=== PATIENT | female | born 1980 | race Caucasian/White ===

== ENCOUNTER 2022-10-05 19:55 | Outpatient (REF) | payer OTHER, SELFPAY ==
[2022-10-10 07:07] LABS: Age Gdln ACOG Testing Note (.); HPV Aptima Negative (Negative); IGP, Aptima HPV, rfx 16/18,45 Note (.)
== END 2022-10-05 19:56 | disposition home or self-care (01) ==
LOC: LAB 19:55
PROVIDERS: Visit Provider Physician Assistant
DX: Z01.419 Encounter for gynecological examination (general) (routine) without abnormal findings (principal)
CPT/HCPCS: 87624; G0145

== ENCOUNTER 2023-03-30 13:49 | Outpatient (OUT) | payer OTHER, SELFPAY ==
--- NOTE | 2023-03-30 13:54 | MM_ITS ---
Patient Name: MISSY GURROLA MR#: [id number] : 1980 Exam Date: 03/30/2023 Ordering Doctor: DR Arnoldo Bernal . RADIOLOGY REPORT PROCEDURE: MM TOMOSYNTHESIS SCREENING BI COMPARISON: MG MAMM SCREEN 3D JAIDEN CAD, 03/11/2021. MG MAMM SCREEN 3D JAIDEN CAD, 03/25/2022. INDICATIONS: screening Calculator Name NCI Breast Cancer Risk Assessment Tool 5 Year Breast Cancer Risk 0.90% Lifetime Breast Cancer Risk 11.80% Personal Breast Cancer No Personal Ovarian Cancer No Treatments None Family Cancers Grandmother-maternal with stomach cancer at age 87. LOCATION: [facility] BREAST COMPOSITION: Scattered areas fibroglandular density. FINDINGS: DIAGNOSTIC CATEGORY 1--NEGATIVE. NO CHANGE FROM COMPARISON ASSESSMENT. Scattered benign-appearing calcifications are present. Scattered benign-appearing lymph nodes are present. RIGHT BREAST: No significant suspicious finding. LEFT BREAST: No significant suspicious finding. RECOMMENDATIONS: ROUTINE MAMMOGRAM AND CLINICAL EVALUATION IN 12 MONTHS. PLEASE NOTE: A NORMAL MAMMOGRAM DOES NOT EXCLUDE THE POSSIBILITY OF BREAST CANCER. A CLINICALLY SUSPICIOUS PALPABLE LUMP SHOULD BE BIOPSIED. Dictated by: Jf Carrion MD on 03/30/2023 at 14:54 Approved by: Jf Carrion MD on 03/30/2023 at 14:56
== END 2023-03-30 13:50 | disposition home or self-care (01) ==
LOC: MAMMO 13:50
PROVIDERS: PCP Family Medicine; Visit Provider Obstetrics & Gynecology
DX: Z12.31 Encounter for screening mammogram for malignant neoplasm of breast (principal); Z80.0 Family history of malignant neoplasm of digestive organs
CPT/HCPCS: 77063; 77067

== ENCOUNTER 2023-10-10 21:16 | Outpatient (REF) | payer OTHER, SELFPAY ==
--- OUTSIDE RECORDS SUMMARY | 2023-10-10 21:28 | XMS_ITS | CCD ---
Author Organization [facility] Inform ion Partnership [facility] Care Team Providers Care School Lunch Monitor Name Role Phone VENUS, DR AUNDREA Moore Admitting Unavailable ZIEBER, DR JESSEE Juarez Consulting Unavailable NAKITA, DR SALAZAR Primary Care Unavailable HEMMER, DR AUNDREA Moore Attending Unavailable HEMMER, DR AUNDREA Moore Consulting Unavailable RAMIRO, DR DIAS Attending Unavailable RAMIRO, DR DIAS Consulting Unavailable RAMIRO, DR DIAS Admitting Unavailable NAKITA, DR SALAZAR Primary Care Unavailable RAMIRO, DR DIAS Admitting Unavailable RAMIRO, DR DIAS Attending Unavailable RAMIRO, DR DIAS Consulting Unavailable NAKITA, DR SALAZAR Primary Care Unavailable ZIEBER, DR JESSEE Juarez Consulting Unavailable PETITTI CORWIN A Attending Unavailable YEISONNIKOLAY Attending Unavailable VENUS, AUNDREA Moore Attending Unavailable Problems Active Problems Problem Classification Problem Date Documented Da te Episodic/Chronic Other screening for suspected conditions (not mental disorders or infectious disease) (8 sources) Encounter for screening mammogram for malignant neoplasm of breast; Translations: [Encounter for screening for malignant neoplasm of cervix] Onset: 09-21-2021 Episodic Residual codes; unclassified (1 source) Family history of malignant neoplasm of digestive organs; Translations: [FAM HX MALIG NEOPLASM DIGESTIV ORGN] Onset: 03-29-2022 Episodic Spondylosis; intervertebral disc disorders; other back problems (4 sources) Radiculopathy, lumbar region; Translations: [RADICULOPATHY LUMBAR REGION] Onset: 04-01-2022 Episodic Past or Other Problems Problem Classification Problem Date Documented Date Episodic/Chronic Immunizations and screening for infectious disease (1 source) Encounter for screening for human papillomavirus (HPV); Translations: [ENC SCREENING HUMAN PAPILLOMAVIRUS] Onset: 09-22-2021 Episodic Results Test Name Value Interpretation Reference Range Facil ity XR LSPINE MIN 4 VIEWSon 03-08 XR LSPINE MIN 4 VIEWS EXAMINATION: XR LSPINE MIN 4 VIEWS HISTORY: Lumbar radiculopathy , chronic COMPARISON: No relevant comparison available. FINDINGS: BONES: No significant spondylosis, scoliosis, fracture, or visible bony lesion. DISC SPACES: No significant disc height narrowing, subluxation, or endplate abnormality. PARASPINOUS: Negative. No paraspinous abnormality is seen. OTHER: Negative. IMPRESSION: 1. No appreciable acute abnormality or significant degenerative changes. Consider MRI of lumbar spine if symptoms persist. Electronically authenticated by: JESSEE ZAYAS Date: 2022-04-02 07:56 Normal [facility] MAMM SCREEN 3D JAIDEN CADon 03-25-2022 MG MAMM SCREEN 3D JAIDEN CAD Patient: MISSY GURROLA Exam Date: 03/25/2022 : 1980 Gender:F Ordering : DR ARUN RUBIO . Admission #: [id number] Family : Order #: [id number] CLICK HERE TO VIEW EXAM RADIOLOGY REPORT PROCEDURE: MAMMOGRAM SCREENING 3D BILATERAL CAD COMPARISON: MG MAMM SCREEN JAIDEN W CAD, 01/25/2020. MG MAMM SCREEN 3D JAIDEN CAD, 03/11/2021. INDICATIONS: Screening mammography Calculator Name NCI Breast Cancer Risk Assessment Tool 5 Year Breast Cancer Risk 0.80% Lifetime Breast Cancer Risk 11.90% Personal Breast Cancer No Personal Ovarian Cancer No Treatments None Family Cancers Grandmother-maternal with stomach cancer at age 87. LOCATION: [facility] BREAST COMPOSITION: Scattered areas fibroglandular density. FINDINGS: DIAGNOSTIC CATEGORY 1--NEGATIVE. RIGHT BREAST: No significant suspicious finding. No significant change has occurred. LEFT BREAST: No significant suspicious finding. No significant change has occurred. RECOMMENDATIONS: ROUTINE MAMMOGRAM AND CLINICAL EVALUATION IN 12 MONTHS. PLEASE NOTE: A NORMAL MAMMOGRAM DOES NOT EXCLUDE THE POSSIBILITY OF BREAST CANCER. A CLINICALLY SUSPICIOUS PALPABLE LUMP SHOULD BE BIOPSIED. Dictated by: Jessee Zayas M.D. on 03/29/2022 at 09:19 Approved by: Jessee Zayas M.D. on 03/29/2022 at 10:00 Normal [facility] PAP ACOG PANEL 2: 30 to 65on 09-25-2021 . . Normal [facility] Comment on above: Result Comment: Perf ormed at: WB Performed By: #### [id number] #### [facility] [address] [place] [address] Dr. Crystal Cunningham Age Gdln ACOG Testing 30-65 Normal [facility] Comment on above: Performed By: #### [id number] #### [facility] [address] [place] [address] Dr. Crystal Cunningham DIAGNOSIS: Comment Normal [facility] Comment on above: Result Comment: NEGA TIVE FOR INTRAEPITHELIAL LESION OR MALIGNANCY. Performed at: WB Performed By: #### [id number] #### [facility] [address] [place] [address] Dr. Crystal Cunningham HPV Aptima Negative Normal Negative [facility] Comment on above: Result Comment: This nucleic acid amplification test detects fourteen high-risk HPV types (16,18,31,33,35,39,45,51,52,56,58,59,66,68) without differentiation. Performed at: =G Performed By: #### [id number] #### [facility] [address] [place] [address] Dr. Crystal Cunningham Methodology: Comment Normal [facility] Comment on above: Result Comment: This liquid based ThinPrep(R) pap test was screened with the use of an image guided system. Performed at: WB Performed By: #### [id number] #### [facility] [address] [place] [address] Dr. Crystal Cunningham Note: Comment Normal [facility] Comment on above: Result Comment: The Pap smear is a screening test designed to aid in the detection of premalignant and malignant conditions of the uterine cervix. It is not a diagnostic procedure and should not be used as the sole means of detecting cervical cancer. Both false-positive and false-negative reports do occur. . Performed at: WB Performed By: #### [id number] #### [facility] [address] [place] [address] Dr. Crystal Cunningham Performed by: Comment Normal [facility] Comment on above: Result Comment: Alberto Mulligan, Technology Engineer (ASCP) Performed at: WB Performed By: #### [id number] #### [facility] [address] [place] [id number] Crystal Cunningham Specimen adequacy: Comment Normal [facility] Comment on above: Result Comment: Sati sfactory for evaluation. Endocervical and/or squamous metaplastic cells (endocervical component) are present. Performed at: WB Performed By: #### [id number] #### [facility] [address] [place] [id number] Crystal Cunningham Coding Summary.on 04-14-2021 Coding Summary. CD:[id number] Gh 0bWw+PGhlYWQ+WM6KANEsM 89dxMQxwU5NW7eFZW0SUNU ZYJXSMA9LAM7puGP4SYtpS 2VybiAv MfwpyGXbTJ85ZNy4SOQ3jJ cbEDcziW4ikGVcU3u0NlHn IL36qQ41TPjhTVTgOjS2Sf ZpbjsgbWFy G9blOyWvjIYuEzp+PHRhYm xlIHdpZHRoPScxMDAlJyBz tPzaLA0mVf3zGNLlVCMfgI xhcHNlOiBj t0xqHUIpXVqoBQ3seWhpQ4 YruAR6LERrj5m3Tb94bQG+ NAOyMLM0aTusNMbcy754Up Dwv8juWCV4 hMTgZZsrGVG5I29xx0P9ZF MqHBMyZEF9aTR7vE5tlScb pxhnQ4QelLXgNlX2EIY1cG JbxD4kbGkm lccnpF9bMux+F63GHI1BJF OTGK1ZXyg8E5OvIfeqsGY+ TI44VLYvYR57aTVgxLXsd7 grtXz8LlCf PHMcMPP4wSazPWtgu0WmOX VmK12hzDZqj8Y2LACgtOib rNFwQbOmwCX3zM7bGAsjzc kxh2ddorxr Dcgwz9xjqw25nB78Q97qXL gvTUHjLST1MELxGIXpbImj or9kkK1fYf7+BQbhr4vcf3 bluRu8RlPw NRNaigLmtOolRQE2u1ZfXa 12R0QblNdwe7CtXoj3cd06 nZGba9J5pVW8EVcvTCCfpH 7xZEreYlE0 CAWkBsGxuU00yAFhNTslZn 8hwYluwXlhZD9kIAIifswh TZDpzH5gTEAdfPEgjOsnNM 4wNTBpbjtm p385FyCrHQR5ZMTebJVvM3 XxvS2pJvEeWYNqZMUsY9Mw hERqTPgsH311LZbjKhN0FS PkifEfZ1Rz WGXrbMbtTcA7c8K7Vn3Ex8 KkakcwYAB4FSxnTRRhOcZ2 JuUqOoL2R6JyYyk5EYMdmN qfBT7oS1Ev YWAsqxzidqbsxYH3QAAgXY AuuL99iRLpMYitYp0gh0F2 v064UWSlWWCwkH70Vz2rhI ogMTBwdCBU aI1yykwct9bmqzegAdQvOG RdIEm4RDj2FXTooPefTgBb QUZ2KjO7WLF9eYDvkS7ebZ cnpchdoT0w Oyc+P12niV6iTWB7APX2wh gjFNBscrClDS20DD37C7Gc PjwvdGFibGU+PGRpdiBzdH ztBG2fFeRk j8cxb1QySXffW6RsJDAoSM zjQzc3LVShQHO0mBI2iJ2q NQIcXIcqt9M6kRS3J1Nmih Lsnq9oo7cl FFDgINaeP80ijYOjf0W2JO OxqUM2ZEJnkTjmLjYleD40 Oyc+JNQyaPmkb7VhXtjas7 dqj8uzbMc0 QkQkXICwrmFfrLczDIA5o3 WqRj93C49dGSsjJJWhNWYz ZBQjHCSmjOxhtk0fdG5tZq 8+PGNvbCB3 gGB7eS6eYGLrAkH4ZXztB9 67SxWvaGEmZkahk1vnv6bm aDi4KiGvXPNnhhKcjFmnUA A0c1HkIz02 C22yGDstSSGnWSFbYWUyFQ MwkJyrra8uzN6wZx5+PC9j d2myjt62jN68nVZ+PHRkIH S2eIzpMZma FIGywV0oPFbmFwR5KRAdFn SofD15lSYhKFnxSy2zoGmn fQbgUH5nOSVqohoqm244Kl Udn0cuQRSt rDTyMXsdOVZ9W75gq4Q9HO SvFZGrSQU2xMI5uG2utAfa bjogbGVmdDsgdmVydGljYW sqARczH526 IHRvcDsnPlBhdGllbnQgTm EzQHb1E4NyLyw6RGFwyIzz CW8qzPVlRRcpNm6wzXxkmQ gkPO8zJWAx xqggq079MiJuo1ljGOBlvY JzYAgwSLX9D12gx9Z5QNAh CPNyGJG1jRE1iH9ydIjbxy ogbGVmdDsg woXvlOiqRAidFQlzL871SU RvcDsnPkJpcnRoIERhdGU6 ES87BG31nOMkm2I6cFU7L3 BhZGRpbmct pwjrgCT8XBMpIVJnqW66Wh 5euMvsTq8iEJTvSXW0BADd tTWtV0XgpY8ySiBoVKFzUM FbO1PdsUGo VUhaB076RLnqZbN5LKOlba FvF2RrOKLhdKxzOmG9j1P4 Ji7RB7D6VY92WH93mGJgp1 O1bUV9I2Ef EZKsrnnuyjzlqYI1HVYaVK WtbJ20Me0jdXxbOe2gXTIg OJB8NOLjrADiS1BrgV3oRt AjMDAwMDAw H6WjnQXeAFxsE858LZvbDo P0YDTibuBdA9UnIOTynGlk NnW1m7W0Uo7WARu0DR07NO 03jJZwx5Q9 zCA9T0VpMXPvmmtixmeekX A4DFBqJHRtuD31Pf6avAoe Tk5gZVAuKQX6WFBctRCrT5 JtjL6aDgQf KULtHFMcR3RamIZlRGdkF3 59AAvtJcT2RZYmiqHfG3Ka MGKckYbmFpY3t6K3Gh5TYE ZtUW23QYY2 lVC1YS95AT65T8NdIzwmkG FibGU+PHRhYmxlIHdpZHRo EIfaDNLaVhAxwUxoGC9wKy 9yZGVyLWNv ePowpGNtDaEyf0moSIJySU pxWT6zpGvaP0NvlJD2KAVr y9f5Fv55X95cB1ApmSU+PG HsiIN4vDC0 sW0eBjRkHnM2MBalS689Mi VarCAdZwpqc9onu7owqTs8 JzH3XPVhzgYeyZkrRMC1p5 CuVe43K82x IHdpZHRoPSIxNSUiIHZhbG yiuq3osF1pYo6+PGNvbCB3 yJJ3fG1bTcFgUnS2EXfyZ4 49InRvcCIv Oyrro4xzm9ujhUu2HxTsRI StaaZtxChfPMK3e9QrGu32 O4JocFpek2VcEja8hb15yC Yul1L5mNP8 L6TrWBRhidpkeUXjiSwtEY 7gMCBuhzzaEEKojZ6uPHSo J2t2SzEyMpZ6KHbaS0Aarn H0YVNwjIKw LLlyZKD1Y58sw0Z1SCMcUO JxXHA6qOE4fO9tcSdfpjzf bGVmdDsgdmVydGljYWwtYW buO977KHSm hPwwUPVqsD4vGRGjhBLcxS jlAL2gYOMjrsetLhLPA4rO ZampUZ7JXnYKKHv3U7QuWj x9OAIhrMgi VN0jzSIoUYpbQc2hqUgatK jjFL7kZBNbmbrcRKBhxW3l OQCvbGKnsDgzAO2bUSLhkm mqt755EwYp KQC9QFFngGKuR5TpgF9iQn LoKGXoSHPzN5NopKNuOEfb J967KZiaVqF1UVQuelAaC4 FsLWFsaWdu PdJ9p8J7Yq5fVM3uEQ4bJO adQT90SM27aWZtg0U8xPR4 C9EsEUDwhsjrxcwmcNS7BR RqBMXqtU38 sBPjNNnwDu7qe9Q0y554NE LrMUCqaT52Gr4nsKyaNLSi tDFAkN7pttbiv4lnluwfNa AwMDAwMDt0 RXl5SZZazKwlRdIzANJ3Ua L1FJW6cPSlcS1huYdogyro dU0oHho+HBShILPfdrK1J0 DsGxb8IODb eGrePH0muVHbBFaaSf2keC qerYvrXC8tWBGoaccgFGGj eR9yTHAebAChxUqoJL7jLT Ydkpkcd966 BmDfHHQ6JNAgvNMuV1QjgH 4iBjZbPQKsAUZiF4LcaNXg OFpwB401MQheScM5NXHlto VsC9PxLYAy rLhhTvS2l4P7Zt3ALI4oiG T0A2VmSgk5VZXhqAxwEX8d dKEyLJrfMt1wzTpngBhvDL 4wNTBpbjtw QWArqC9sDZHawRKnmZegCD 7bQBMdrmtnb174RkFwKZR2 SFGjvFLuW8LjsR9oVjZtSO ZqEAIqN5Gm jPEpUYnuH167LKqaMkY3OA HlroPuK6FtRDTorSrpJiG2 z0T1Vi6ZkMEbVHEaCB16LG 60XL66O0Bq PjwvdGFibGU+PHRhYmxlIH dpZHRoPScxMDAlJyBzdHls DN9pLq6gYPBaUFGrfAhaoX AgOxYfb0yz DBReNJufIT2eoCyiY2HwuC I9ZAKyp4v8Wy83L26bT8Zs dXA+CCMovEX5pKK5aN7xDh LfXuJ3QFqi O116MbGjzDLhByvgs5dut0 pswUt9BaBvUFYfpxPmbMpr PYA5y5GpPn29D27bBReuGA RoPSIyMCUi LNTwzWeznv2smD0fZo1+PG PbmJO2cZG5xQ2xPjEqPrW0 JSwjC939CjFywMTwGbjoF9 6sA7FpoAE+ SRAlMdl4GSFobRmqRF1mcB ArPZmwNy7oMTG7EuPiIgQo CGqmJ3EoFFRwbpclrcqtaM I7QYXbRAIw cA11Pc9qpThgQo0sTKNbED C7VFPoiJRxH6XafM9qTpXa INWtAMDnS9LelHYbMXddP2 92USknQvV1 PLMggsUsV7YkKZJmmPzfCi C9e4X3Nl9CtPngbQRgEW9a MiVaQDd6R4SnLju9RWZouS huBW0gyFZy LAfjJi4erQtevKwjCU7rOC Vrmfxdv683RoObu6fwXQPm vCYqMXxsXTG0B48ln4J1ZL MwMDAwMDA7 zNH2pD1ooJjdiyabiIDwxO iwhqOjtSagFCgqITocG044 CMIeaClmPcYYRly9W8WjWg u2UNOljRbk DF6ahUHwLStfUp8keJrcjL zqYK3eBGBhnxpcb550EjCo z4tfUIOtgYGnTPbhPLO1W2 6xs0E8GJGs VGNqDSV8iRS7gC5ncCwfcd ogbGVmdDsgdmVydGljYWwt MTeeR316TJAqoBjbPe3OZy y6M2QiZos4 MWYpoAiqVR2nnRPsDVkgSr 8zgAwilIwdVA2lQQOqpxgt q675FbNnj4bbYGSkvPDfDN mmFIN8V35z v5J0PGFcFNHyWBU9bUJ5eB 1hbGlnbjogbGVmdDsgdmVy cCrxKAjaYRqxZ403JLFjpE snPlBheWVy OjwvdGQ+TU48eh69C5DsCk ijVbw7SIFgQEQ2sSA6vM4q UGXqWVfqh4C7qUM1H5Zzxf Vsle0gh1qx YXBz (more content not included)... Normal [facility] MRI Ankle w/o Contrast Right on 04-14-2021 MRI Ankle w/o Contrast Right Exam Date/Time: 04/13/2021 08:22 EST Reason for Exam: CHRONIC PAIN AND INFLAMMATION Report IMPRESSION: TINY FOCAL SPLIT TEAR OF PERONEUS BREVIS TENDON ALONG THE INFERIOR MARGIN OF THE LATERAL MALLEOLUS. 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 EXAM: MRI Ankle w/o Contrast Right HISTORY: Chronic pain and inflammation. TECHNIQUE: Multisequence multiplanar MRI of the ankle was performed without contrast COMPARISON: None available FINDINGS: Achilles tendon is intact. The visualized plantar fascia is intact and is without thickening or nodularity. The tibialis posterior, flexor hallucis longus, and flexor digitorum longus tendons are intact. No space-occupying lesion within the tarsal tunnel. Tiny focal split tear of peroneus brevis along the inferior margin of the lateral malleolus. Peroneus brevis longus tendon is intact. Extensor tendons are intact. The anterior and posterior tibiofibular ligaments, posterior talofibular ligament, and calcaneofibular ligament are intact. Full-thickness tear of the anterior talofibular ligament is likely chronic as there is no adjacent soft tissue edema Superficial and deep fibers of the deltoid ligament are intact. Spring ligament is intact. Sinus tarsi fat is preserved. Mild degenerative changes of the midfoot. No ankle joint effusion. No evidence of fracture or stress reaction of the visualized bones. FINAL REPORT Dictated: 04/14/2021 11:16 am Elias Castillo DO Signed (Electronic Signature): 04/14/2021 11:16 am Signed by: Elias Castillo DO Transcribed by: EDWIN Technologist: KARLY Technical Comments None Normal [facility] Consent for Treatmenton Consent for Treatment [id number] 0CD:127 Normal [facility] RAD - MRI Screening Formon 0 04-13-2021 RAD - MRI Screening Form [id number]. 00CD:127 Normal [facility] Physician Orderon 04-06-2021 Physician Order [id number] 0CD:127 Normal [facility] Comprehensive Metabolic Pane ana 12-24-2020 Albumin [Mass/Vol] 4.3 g/dL Normal 3.5-4.6 [facility] Comment on above: Performed By: #### C MP #### [facility] [address] [place] [address] ALP [Catalytic activity/Vol] 61 U/L Normal 40-130 [facility] Comment on above: Performed By: #### C MP #### [facility] [address] [place] [address] ALT [Catalytic activity/Vol] 21 U/L Normal 0-33 [facility] Comment on above: Performed By: #### C MP #### [facility] [address] [place] [address] Anion gap [Moles/Vol] 14 mmol/L Normal 9-15 [facility] Comment on above: Performed By: #### C MP #### [facility] [address] [place] [address] AST [Catalytic activity/Vol] 20 U/L Normal 0-35 [facility] Comment on above: Performed By: #### C MP #### [facility] [address] [place] [address] Bilirubin [Mass/Vol] 0.3 mg/dL Normal 0.2-0.7 [facility] Comment on above: Performed By: #### C MP #### [facility] [address] [place] [address] Calcium [Mass/Vol] 9.3 mg/dL Normal 8.5-9.9 [facility] Comment on above: Performed By: #### C MP #### [facility] [address] [place] [address] Chloride [Moles/Vol] 102 mmol/L Normal 95-107 [facility] Comment on above: Performed By: #### C MP #### [facility] [address] [place] [address] CO2 [Moles/Vol] 23 mmol/L Normal 20-31 [facility] Comment on above: Performed By: #### C MP #### [facility] [address] [place] [address] Creatinine [Mass/Vol] 0.82 mg/dL Normal 0.50-0.90 [facility] Comment on above: Performed By: #### C MP #### [facility] [address] [place] [address] GFR >60.0 Normal >60 [facility] Comment on above: Result Comment: >60 mL/min/1.73m2 EGFR, calc. for ages 18 and older using the MDRD formula (not corrected for weight), is valid for stable renal function. Performed By: #### C MP #### [facility] [address] [place] [address] GFR/1.73 sq M.predicted among blacks MDRD (S/P/Bld) [Vol rate/Area] mL/min/{1.73_m2} Normal >60 [facility] Comment on above: Result Comment: >60 mL/min/1.73m2 EGFR, calc. for ages 18 and older using the MDRD formula (not corrected for weight), is valid for stable renal function. Performed By: #### C MP #### [facility] [address] [place] [address] Globulin (S) [Mass/Vol] 2.4 g/dL Normal 2.3-3.5 [facility] Comment on above: Performed By: #### C MP #### [facility] [address] [place] [address] Glucose [Mass/Vol] 102 mg/dL Critically high 70-[address] [facility] [place] Comment on above: Performed By: #### C MP #### [facility] [address] [place] [address] Potassium [Moles/Vol] 5.0 mmol/L Critically high 3.4-4.9 [facility] Comment on above: Performed By: #### C MP #### [facility] [address] [place] [address] Protein [Mass/Vol] 6.7 g/dL Normal 6.3-8.0 [facility] Comment on above: Performed By: #### C MP #### [facility] [address] [place] [address] Sodium [Moles/Vol] 139 mmol/L Normal 135-144 [facility] Comment on above: Performed By: #### C MP #### [facility] [address] [place] [address] Urea nitrogen [Mass/Vol] 15 mg/dL Normal 6-20 [facility] Comment on above: Performed By: #### C MP #### [facility] [address] [place] [address] Lipid Panelon 12-24-2020 Cholesterol [Mass/Vol] 173 mg/dL Normal 0-199 [facility] Comment on above: Result Comment: ATP III Cholesterol classification is Desirable. Performed By: #### L IPID #### [facility] [address] [place] [address] Cholesterol in HDL [Mass/Vol] 52 mg/dL Normal 40-59 [facility] Comment on above: Result Comment: ATP III HDL Cholesterol Classification is Desirable. Expected Values: Males: >55 = No Risk 35-55 = Moderate Risk <35 = High Risk Females: >65 = No Risk 45-65 = Moderate Risk <45 = High Risk NCEP Guidelines: Third Report July 2000 >59 = negative risk factor for CHD <40 = major risk factor for CHD Performed By: #### L IPID #### [facility] [address] [place] [address] Cholesterol in LDL [Mass/Vol] 101 mg/dL Normal 0-129 [facility] Comment on above: Result Comment: ATP III LDL Classification is Near Optimal. Performed By: #### L IPID #### [facility] [address] [place] [address] Triglyceride [Mass/Vol] 102 mg/dL Normal 0-150 [facility] Comment on above: Result Comment: ATP III Triglycerides Classification is Normal. Performed By: #### L IPID #### [facility] [address] [place] [address] Encounters Encounter Date Encounter Type Care Provider Facility Start: 05-04-2023 End: 05-04-2023 ambulatory AUNDREA DONOVAN Not Available Start: 04-06-2023 End: 04-06-2023 ambulatory NIKOLAY LATHAM Not Available Start: 03-17-2023 End: 03-17-2023 ambulatory CORWIN HALL Not Available Start: 04-01-2022 End: 04-02-[address] AUNDREA DONOVAN Facility[facility] Start: 03-25-2022 End: 03-26-[address] ARUN RUBIO Facility:[facility] Start: 09-21-2021 End: 09-21-[address] ARUN RBUIO Facility:[facility] Payers Date Payer Category Payer Unknown [id number] 2.16.84 [id number] 1980 Unknown [id number] 2.16.84 [id number] 1980 Unknown [id number] 2.16.84 [id number] 1980 Unknown [id number] 2.16.84 [id number] 1979 Unknown [id number] 2.16.84 [id number] 1979 Unknown [id number] 2.16.84 [id number] 1959 Unknown [id number] Summary Purpose Family History No Family History Records FoundNo Family History Records FoundNo Family History Records FoundNo Family History Records Found Advance Directives No Advanced Directives Records FoundNo Advanced Directives Records FoundNo Advanced Directives Records FoundNo Advanced Directives Records Found Additional Source Comments INFORMATION SOURCE (unrecogn ized section and content) DATE CREATED AUTHOR 12/25/2020 [facility] DATE CREATED AUTHOR AUTHOR'S ORGANIZ ATION 04/15/2021 [facility] DATE CREATED AUTHOR AUTHOR'S ORGANIZ ATION 04/05/2022 [facility] DATE CREATED AUTHOR AUTHOR'S ORGANIZ ATION 05/07/2023 [facility] FOR RECORDS PERTAINING TO PATIENTS WHO ARE OR HAVE BEEN ENROLLED IN A CHEMICAL DEPENDENCY/SUBSTANCEABUSE PROGRAM, SOME INFORMATION MAY BE OMITTED. This clinical summary was aggregated from multiple sources. Caution should be exercised in using it in the provision of clinical care. This summary normalizes information from multiple sources, and as a consequence, information in this document may materially change the coding, format and clinical context of patient data. In addition, data may be omitted in some cases. CLINICAL DECISIONS SHOULD BE BASED ON THE PRIMARY CLINICAL RECORDS. [facility] [employer] provides no warranty or guarantee of the accuracy or completeness of information in this document.
== END 2023-10-10 21:17 | disposition home or self-care (01) ==
LOC: LAB 21:16
PROVIDERS: PCP Family Medicine; Visit Provider Physician Assistant
DX: Z01.419 Encounter for gynecological examination (general) (routine) without abnormal findings (principal)
CPT/HCPCS: 87624; 88175

== ENCOUNTER 2024-04-05 15:27 | Outpatient (OUT) | payer OTHER, SELFPAY ==
--- NOTE | 2024-04-05 15:30 | MM_ITS ---
Patient Name: MISSY GURROLA MR#: [id number] : 1980 Exam Date: 04/05/2024 Ordering Doctor: DR Arnoldo Bernal . RADIOLOGY REPORT PROCEDURE: MM TOMOSYNTHESIS SCREENING BI COMPARISON: MM TOMOSYNTHESIS SCREENING BI, 03/30/2023. MG MAMM SCREEN 3D JAIDEN CAD, 03/25/2022. MG MAMM SCREEN 3D JAIDEN CAD, 03/11/2021. MG MAMM SCREEN JAIDEN W CAD, 01/25/2020. INDICATIONS: Screening Calculator Name NCI Breast Cancer Risk Assessment Tool 5 Year Breast Cancer Risk 0.90% Lifetime Breast Cancer Risk 11.70% Personal Breast Cancer No Personal Ovarian Cancer No Treatments None Family Cancers Grandmother-maternal with stomach cancer at age 87. LOCATION: [facility] BREAST COMPOSITION: There are scattered areas of fibroglandular density. FINDINGS: DIAGNOSTIC CATEGORY 1--NEGATIVE. RIGHT BREAST: No significant suspicious finding. No significant change has occurred. LEFT BREAST: No significant suspicious finding. No significant change has occurred. RECOMMENDATIONS: ROUTINE MAMMOGRAM AND CLINICAL EVALUATION IN 12 MONTHS. PLEASE NOTE: A NORMAL MAMMOGRAM DOES NOT EXCLUDE THE POSSIBILITY OF BREAST CANCER. A CLINICALLY SUSPICIOUS PALPABLE LUMP SHOULD BE BIOPSIED. Dictated by: Jessee Zayas M.D. on 04/05/2024 at 16:26 Approved by: Jessee Zayas M.D. on 04/05/2024 at 16:28
--- OUTSIDE RECORDS SUMMARY | 2024-04-05 15:32 | XMS_ITS | CCD ---
Author Organization [facility] Care Team Providers Care Customer Sales Representative Name Role Phone VENUS, DR BILLIE Moore Admitting Unavailable ZIEBCHARLES, DR JESSEE Juarez Consulting Unavailable NAKITA, DR SALAZAR Primary Care Unavailable HEMMER, DR BILLIE Moore Attending Unavailable HEMMER, DR BILLIE Moore Consulting Unavailable RAMIRO, DR DIAS Attending Unavailable RAMIRO, DR DIAS Consulting Unavailable RAMIRO, DR DIAS Admitting Unavailable NAKITA, DR SALAZAR Primary Care Unavailable RAMIRO, DR DIAS Admitting Unavailable RAMIRO, DR DIAS Attending Unavailable RAMIRO, DR DIAS Consulting Unavailable NAKITA, DR SALAZAR Primary Care Unavailable ZIEBER, DR JESSEE Juarez Consulting Unavailable Antwon Sheffield MD Primary Care Provider [phone] Mily Hall Unavailable NIKOLAY LATHAM Attending Unavailable BILLIE DONOVAN Attending Unavailable MILY SANTANA Attending Unavailable BILLIE DONOVAN Attending Unavailable BILLIE DONOVAN Attending Unavailable BILLIE DONOVAN Referring Unavailable JOSSELINE HALL Attending Unavailable Medications Current Medications Medication Drug Class(es) Dates Sig (Normalized) Sig (Original) ethinyl estradiol 0.035 mg / norethindrone 0.4 mg oral tablet (9 sources) Estrogen Start: 10-10-2023 norethindrone-ethiny l estradiol (Balziva) 0.4-35 MG-MCG tablet Indications: Well woman exam with routine gynecological exam , Uses control One tab daily 28 tablet 11 10/10/2023 Active triamcinolone acetonide 1 mg/ml topical cream (9 sources) Corticosteroid Start: 03-17-2023 triamcinolone (Kenalog) 0.1 % cream Indications: Lichen simplex chronicus Apply to affected areas, up to twice a day when flared, do not use one the face, groin, or underarms, 30 day supply 30 g 11 03/17/2023 Active Completed/Discontinued Medications Medication Drug Class(es) Dates Sig (Normalized) Sig (Original) meloxicam 15 mg oral tablet (2 sources) Nonsteroidal Anti-inflammatory Drug Start: 07-25-2023 End: 02-06-2024 take 1 tablet by mouth once daily at mealtime meloxicam (Mobic) 15 MG tablet Indications: Lumbar radiculopathy TAKE 1 TABLET BY MOUTH EVERY DAY TAKE WITH FOOD 30 tablet 2 07/25/2023 02/06/2024 Discontinued (Therapy completed) Problems Active Problems Problem Classification Problem Date Documented Date Episodic/Chronic Diabetes mellitus without complication (2 sources) Impaired fasting glycemia; Translations: [Impaired fasting glucose] 02-13-2024 Episodic Immunizations and screening for infectious disease (3 sources) Encounter for screening for human papillomavirus (HPV); Translations: [Vaccination needed] Onset: 09-22-2021 02-06-2024 Episodic Other and unspecified benign neoplasm (2 sources) Melanocytic nevus of trunk; Translations: [Melanocytic nevi of trunk] 03-19-2024 Episodic Other and unspecified benign neoplasm (2 sources) Skin lesion; Translations: [Hemangioma of skin and subcutaneous tissue] 03-19-2024 Episodic Other connective tissue disease (2 sources) Other symptoms and signs involving the musculoskeletal system; Translations: [Other musculoskeletal symptoms referable to limbs] 02-06-2024 Episodic Other inflammatory condition of skin (7 sources) Lichen simplex chronicus; Translations: [Lichen simplex chronicus] Onset: 02-13-2024 02-13-2024 Episodic Other nervous system disorders (2 sources) 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 Other nutritional; endocrine; and metabolic disorders (7 sources) Obesity caused by energy imbalance; Translations: [Class 1 obesity due to excess calories without serious comorbidity with body mass index (BMI) of 32.0 to 32.9 in adult] Onset: 02-13-2024 02-13-2024 Chronic Other screening for suspected conditions (not mental disorders or infectious disease) (8 sources) Encounter for screening mammogram for malignant neoplasm of breast; Translations: [Encounter for screening for malignant neoplasm of cervix] Onset: 09-21-2021 Episodic Other skin disorders (2 sources) Lentiginosis; Translations: [Other melanin hyperpigmentation] 03-19-2024 Episodic Other skin disorders (2 sources) Seborrheic keratosis; Translations: [Other seborrheic keratosis] 03-19-2024 Episodic Residual codes; unclassified (1 source) Family history of malignant neoplasm of digestive organs; Translations: [FAM HX MALIG NEOPLASM DIGESTIV ORGN] Onset: 03-29-2022 Episodic Past or Other Problems Problem Classification Problem Date Documented Da te Episodic/Chronic Other connective tissue disease (11 sources) Iliotibial band friction syndrome of left knee; Translations: [Iliotibial band syndrome, left leg] Onset: 03-31-2023 03-31-2023 Episodic Other connective tissue disease (11 sources) Trochanteric bursitis of left hip; Translations: [Trochanteric bursitis, left hip] Onset: 03-31-2023 03-31-2023 Episodic Other endocrine disorders (9 sources) Hypoglycemia; Translations: [Hypoglycemia, unspecified] Onset: 03-31-2023 Resolved: 02-06-2024 03-31-2023 Chronic Spondylosis; intervertebral disc disorders; other back problems (20 sources) Radiculopathy, lumbar region; Translations: [Disorder of left sciatic nerve] Onset: 04-01-2022 Episodic Unclassified (2 sources) Left leg weakness 02-06-2024 Results Test Name Value Interpretation Reference Range Facility MR LUMBAR SPINE WO CONTRASTo n 02-20-2024 MR LUMBAR SPINE WO CONTRAST EXAMINATION/TECHNIQUE : MR LUMBAR SPINE WO CONTRAST HISTORY: Back pain. COMPARISON: None. RESULT: Counting reference: Lumbosacral junction. For the purposes of this report, L5-S1 is considered the last well-formed disc space. 5 lumbar type vertebral bodies. Alignment: Alignment essentially anatomic. Bone marrow signal: No evidence for acute or chronic fracture. No destructive osseous lesions. Conus: The conus is within normal limits of signal intensity and morphology. Paraspinal soft tissues: Subcutaneous edema posteriorly, otherwise unremarkable. Lower thoracic spine: Visualized lower thoracic canal and foramina without significant narrowing. T12-L1: No significant canal or foraminal narrowing. L1-L2: No significant canal or foraminal narrowing. L2-L3: No significant canal or foraminal narrowing. L3-L4: Disc desiccation. Disc bulge. No significant canal or foraminal narrowing. L4-L5: Disc bulge. Facet degenerative changes. No significant canal or foraminal narrowing. L5-S1: Disc bulge. Facet degenerative changes. No significant canal or foraminal narrowing. Sacrum and iliac wings: The visualized sacrum and iliac wings are unremarkable. IMPRESSION: Degenerative lumbar spine without high-grade canal or foraminal narrowing. ELECTRONICALLY SIGNED BY: Enio Rush MD Normal Not Available CBC (INCLUDES DIFF/PLT)on Basophils (Bld) [#/Vol] 0.028 10*3/uL Normal 0-200 [facility] Comment on above: Performed By: #### 1 0231, 7600, 6399 #### [facility] [place] [address] Screedman/Laborer: Herminio Faust MD Basophils/100 WBC (Bld) 0.3 % Normal [facility] Comment on above: Performed By: #### 1 023, 7599, 6399 #### [facility] [place] [address] Screedman/Laborer: Herminio Faust MD Eosinophils (Bld) [#/Vol] 0.074 10*3/uL Normal 15-500 [facility] Comment on above: Performed By: #### 1 0231, 7600, 6399 #### [facility] [place] [address] Screedman/Laborer: Herminio Faust MD Eosinophils/100 WBC (Bld) 0.8 % Normal [facility] Comment on above: Performed By: #### 1 0231, 7599, 6399 #### [facility] [place] [address] Screedman/Laborer: Herminio Faust MD Erythrocyte distribution width (RBC) [Ratio] 12.0 % Normal 11.0-15.0 [facility] Comment on above: Performed By: #### 1 0231, 7600, 6399 #### [facility] [place] [address] Screedman/Laborer: Herminio Faust MD Hematocrit (Bld) [Volume fraction] 40.7 % Normal 35.0-45.0 [facility] Comment on above: Performed By: #### 1 230, 7599, 6399 #### [facility] of [place] [address] Screedman/Laborer: Herminio Faust MD Hemoglobin (Bld) [Mass/Vol] 13.3 g/dL Normal 11.7-15.5 [facility] Comment on above: Performed By: #### 1 230, 7599, 6399 #### [facility] of [place] [address] Screedman/Laborer: Herminoi Faust MD Lymphocytes (Bld) [#/Vol] 1.794 10*3/uL Normal 850-3900 [facility] Comment on above: Performed By: #### 1 230, 7599, 6399 #### [facility] of [place] [address] Screedman/Laborer: Herminio Faust MD Lymphocytes/100 WBC (Bld) 19.5 % Normal [facility] Comment on above: Performed By: #### 1 230, 7599, 6399 #### [facility] of [place] [address] Screedman/Laborer: Herminio Faust MD MCH (RBC) [Entitic mass] 30.9 pg Normal 27.0-33.0 [facility] Comment on above: Performed By: #### 1 230, 7599, 6399 #### [facility] of [place] [address] Screedman/Laborer: Herminio Faust MD MCHC (RBC) [Mass/Vol] 32.7 g/dL Normal 32.0-36.0 [facility] Comment on above: Result Comment: For adults, a slight decrease in the calculated MCHC value (in the range of 30 to 32 g/dL) is most likely not clinically significant; however, it should be interpreted with caution in correlation with other red cell parameters and the patient's clinical condition. Performed By: #### 1 023, 7599, 6399 #### [facility] of [address], [address] [place] [address] Screedman/Laborer: Herminio Faust MD MCV (RBC) [Entitic vol] 94.7 fL Normal 80.0-100.0 [facility] Comment on above: Performed By: #### 1 0231, 0, 6399 #### [facility] of [address], [address] [place] [address] Screedman/Laborer: Herminio Faust MD Monocytes (Bld) [#/Vol] 0.267 10*3/uL Normal 200-950 [facility] Comment on above: Performed By: #### 1 0231, 7599, 6399 #### [facility] of [address], [address] [place] [address] Screedman/Laborer: Herminio Faust MD Monocytes/100 WBC (Bld) 2.9 % Normal [facility] Comment on above: Performed By: #### 1 023, 7599, 6399 #### [facility] of [address], [address] [place] [address] Screedman/Laborer: Herminio Faust MD Neutrophils (Bld) [#/Vol] 7.038 10*3/uL Normal 9438-0649 [facility] Comment on above: Performed By: #### 1 0231, 7599, 6399 #### [facility] of [address], [address] [place] [address] Screedman/Laborer: Herminio Faust MD Neutrophils/100 WBC (Bld) 76.5 % Normal [facility] Comment on above: Performed By: #### 1 0231, 7599, 6399 #### [facility] of [place] [address] Screedman/Laborer: Herminio Faust MD Platelet mean volume (Bld) [Entitic vol] 10.0 fL Normal 7.5-12.5 [facility] Comment on above: Performed By: #### 1 0231, 0, 6399 #### [facility] of [address], [address] [place] [address] Screedman/Laborer: Herminio Faust MD Platelets (Bld) [#/Vol] 327 10*3/uL Normal 140-400 [facility] Comment on above: Performed By: #### 1 0231, 7600, 6399 #### [facility] of [address], [address] [place] [address] Screedman/Laborer: Herminio Faust MD RBC (Bld) [#/Vol] 4.30 10*6/uL Normal 3.80-5.10 [facility] Comment on above: Performed By: #### 1 0231, 7600, 6399 #### [facility] of [place] [address] Screedman/Laborer: Herminio Faust MD WBC (Bld) [#/Vol] 9.2 10*3/uL Normal 3.8-10.8 [facility] Comment on above: Performed By: #### 1 0231, 7600, 6399 #### [facility] of [address], [address] [place] [address] Screedman/Laborer: Herminio Faust MD [employer] [facility] 02-14-2024 Albumin [Mass/Vol] 4.3 g/dL Normal 3.6-5.1 [facility] Comment on above: Performed By: #### 1 0231, 7600, 6399 #### [facility] of [place] [address] Screedman/Laborer: Herminio Faust MD Albumin/Globulin [Mass ratio] 1.5 {ratio} Normal 1.0-2.5 [facility] Comment on above: Performed By: #### 1 0231, 7600, 6399 #### [facility] of [place] [address] Screedman/Laborer: Herminio Faust MD ALP [Catalytic activity/Vol] 51 U/L Normal 31-125 [facility] Comment on above: Performed By: #### 1 0231, 7600, 6399 #### [facility] of [address] [place] [address] Screedman/Laborer: Herminio Faust MD ALT [Catalytic activity/Vol] 18 U/L Normal 6-29 [facility] Comment on above: Performed By: #### 1 0231, 7599, 6399 #### [facility] of [address], [address] [place] [address] Screedman/Laborer: Herminio Faust MD AST [Catalytic activity/Vol] 19 U/L Normal 10-30 [facility] Comment on above: Performed By: #### 1 0231, 7599, 6399 #### [facility] of [address], [address] [place] [address] Screedman/Laborer: Herminio Faust MD Bilirubin [Mass/Vol] 0.4 mg/dL Normal 0.2-1.2 [facility] Comment on above: Performed By: #### 1 023, 7599, 6399 #### [facility] of [address], [address] [place] [address] Screedman/Laborer: Herminio Faust MD BUN/CREATININE RATIO SEE NOTE: Normal 6-22 [facility] Comment on above: Result Comment: Not Reported: BUN and Creatinine are within reference range. Performed By: #### 1 023, 7599, 6399 #### [facility] of [address], [address] [place] [address] Screedman/Laborer: Herminio Faust MD Calcium [Mass/Vol] 9.4 mg/dL Normal 8.6-10.2 [facility] Comment on above: Performed By: #### 1 023, 7599, 6399 #### [facility] of [address], [address] [place] [address] Screedman/Laborer: Herminio Faust MD Chloride [Moles/Vol] 101 mmol/L Normal 98-110 [facility] Comment on above: Performed By: #### 1 023, 7599, 6399 #### [facility] of [address], [address] [place] [address] Screedman/Laborer: Herminio Faust MD CO2 [Moles/Vol] 27 mmol/L Normal 20-32 [facility] Comment on above: Performed By: #### 1 023, 7599, 6399 #### [facility] of [place] [address] Screedman/Laborer: Herminio Faust MD Creatinine [Mass/Vol] 0.89 mg/dL Normal 0.50-0.99 [facility] Comment on above: Performed By: #### 1 023, 7599, 6399 #### [facility] of [place] [address] Screedman/Laborer: Herminio Faust MD GFR/1.73 sq M.predicted among non-blacks MDRD (S/P/Bld) [Vol rate/Area] 82 mL/min/{1.73_m2} Normal > OR = 60 [facility] Comment on above: Performed By: #### 1 023, 7599, 6399 #### [facility] of [address], [address] [place] [address] Screedman/Laborer: Herminio Faust MD Globulin (S) [Mass/Vol] 2.8 g/dL Normal 1.9-3.7 [facility] Comment on above: Performed By: #### 1 023, 7599, 6399 #### [facility] of [place] [address] Screedman/Laborer: Herminio Faust MD Glucose [Mass/Vol] 95 mg/dL Normal 65-99 [facility] Comment on above: Result Comment: Fasting reference interval Performed By: #### 1 023, 7599, 6399 #### [facility] of [place] [address] Screedman/Laborer: Herminio Faust MD Potassium [Moles/Vol] 4.2 mmol/L Normal 3.5-5.3 [facility] Comment on above: Performed By: #### 1 023, 7599, 6399 #### [facility] of [place] [address] Screedman/Laborer: Herminio Faust MD Protein [Mass/Vol] 7.1 g/dL Normal 6.1-8.1 [facility] Comment on above: Performed By: #### 1 0231, 7600, 6399 #### [facility] [place] [address] Screedman/Laborer: Herminio Faust MD Sodium [Moles/Vol] 137 mmol/L Normal 135-146 [facility] Comment on above: Performed By: #### 1 0231, 7600, 6399 #### [facility] [address], [address] [place] [address] Screedman/Laborer: Herminio Faust MD Urea nitrogen [Mass/Vol] 15 mg/dL Normal 7-25 [facility] Comment on above: Performed By: #### 1 0231, 7600, 6399 #### [facility] [place] [address] Screedman/Laborer: Herminio Faust MD LIPID PANEL, [place] [address] Cholesterol [Mass/Vol] 175 mg/dL Normal <200 [facility] Comment on above: Order Comment: FASTI NG:YES FASTING: YES Performed By: #### 1 0231, 0, 6399 #### [facility] [place] [address] Screedman/Laborer: Herminio Faust MD Cholesterol in HDL [Mass/Vol] 47 mg/dL Low > OR = 50 [facility] Comment on above: Order Comment: FASTI NG:YES FASTING: YES Performed By: #### 1 0231, 7600, 6399 #### [facility] [place] [address] Screedman/Laborer: Herminio Faust MD Cholesterol in LDL [Mass/Vol] 104 mg/dL High [facility] Comment on above: Order Comment: FASTI NG:YES FASTING: YES Result Comment: Refe rence range: <100 Desirable range <100 mg/dL for primary prevention; <70 mg/dL for patients with CHD or diabetic patients with > or = 2 CHD risk factors. LDL-C is now calculated using the Reinier-Araujo calculation, which is a validated novel method providing better accuracy than the Friedewald equation in the estimation of LDL-C. Reinier SS et al. DEEPAK. 2013;310(19): 1661-3517 (http://education.[employer]/faq/WSN039) Performed By: #### 1 0231, 7600, 6399 #### [facility] [address], [address] [place] [address] Screedman/Laborer: Herminio Faust MD Cholesterol.total/ Cholesterol in HDL [Mass ratio] 3.7 {ratio} Normal <5.0 [facility] Comment on above: Order Comment: FASTI NG:YES FASTING: YES Performed By: #### 1 0231, 7600, 6399 #### [facility] [address], [address] [place] [address] Screedman/Laborer: Herminio Faust MD NON HDL CHOLESTEROL 128 mg/dL (calc) Normal <130 [facility] Comment on above: Order Comment: FASTI NG:YES FASTING: YES Result Comment: For patients with diabetes plus 1 major ASCVD risk factor, treating to a non-HDL-C goal of <100 mg/dL (LDL-C of <70 mg/dL) is considered a therapeutic option. Performed By: #### 1 0231, 7600, 6399 #### [facility] [place] [address] Screedman/Laborer: Herminio Faust MD Triglyceride [Mass/Vol] 141 mg/dL Normal <150 [facility] Comment on above: Order Comment: FASTI NG:YES FASTING: YES Performed By: #### 1 0231, 7600, 6399 #### [facility] [address], [address] [place] [address] Screedman/Laborer: Herminio Faust MD XR LSPINE MIN 4 VIEWSon 03-08 XR [...] JESSEE ZAYAS Date: 2022-04-02 07:56 Normal [facility] MG MAMM SCREEN 3D JAIDEN CADon 03-25-2022 MG MAMM SCREEN 3D JAIDEN CAD Patient: LARRY GURROLA Exam Date: 03/25/2022 : 1980 Gender:F Ordering : DR ARUN RUBIO . Admission #: [id number] Family : Order #: [id number] CLICK HERE TO VIEW EXAM RADIOLOGY REPORT [...] stomach cancer at age 86. LOCATION: [facility] BREAST COMPOSITION: Scattered areas fibroglandular density. FINDINGS: [...] Zayas M.D. on 03/29/2022 at 10:00 Normal [facility] PAP ACOG PANEL 2: 30 to 65on 09-25-2021 . . Normal [facility] Comment on above: Result Comment: Perf ormed at: WB Performed By: #### 4 [id number] #### [facility] [address] [place] [address] [address] Crystal Cunningham Age Gdln ACOG Testing 30-65 Normal [facility] Comment on above: Performed By: #### 4 [id number] #### [facility] [address] [place] [address] [address] Crystal Cunningham DIAGNOSIS: Comment Normal [facility] Comment on above: Result Comment: NEGA TIVE FOR INTRAEPITHELIAL LESION OR MALIGNANCY. Performed at: WB Performed By: #### 4 [id number] #### [facility] [address] [place] [address] [address] Crystal Cunningham HPV Aptima Negative Normal Negative [facility] Comment on above: Result Comment: This nucleic acid amplification test detects fourteen high-risk HPV types (16,18,31,33,35,39,45,51,52,56,58,59,66,68) without differentiation. Performed at: =G Performed By: #### 4 [id number] #### [facility] [address] [place] [address] Dr. Crystal Cunningham Methodology: Comment Normal [facility] Comment on above: Result Comment: This liquid based ThinPrep(R) pap test was screened with the use of an image guided system. Performed at: WB Performed By: #### 4 [id number] #### [facility] [address] [place] [address] Dr. Crystal Cunningham Note: Comment Normal [facility] Comment on above: Result Comment: The Pap smear is a screening test designed to aid in the detection of premalignant and malignant conditions of the uterine cervix. It is not a diagnostic procedure and should not be used as the sole means of detecting cervical cancer. Both false-positive and false-negative reports do occur. . Performed at: WB Performed By: #### 4 [id number] #### [facility] [address] [place] [address] Dr. Crystal Cunningham Performed by: Comment Normal [facility] Comment on above: Result Comment: Alberto Mulligan, Turbine Mechanic (ASCP) Performed at: WB Performed By: #### 4 [id number] #### [facility] [address] [place] [address] Dr. Crystal Cunningham Specimen adequacy: Comment Normal [facility] Comment on above: Result Comment: Sati sfactory for evaluation. Endocervical and/or squamous metaplastic cells (endocervical component) are present. Performed at: WB Performed By: #### 4 [id number] #### [facility] [address] [place] [address] Dr. Crystal Cunningham Coding Summary.on 04-14-2021 Coding Summary. CD:[id number] G h0bWw+PGhlYWQ+UG1PPDS cH41woOXdkK9TH5dMJL9Y SRKZXCNVAL2QVH4lcPU3G WnvN7ScrsAf WkkvzEHaPO22EDa6EUH6u AmiRShwaC3liMLnB6s3Qi RxMP70wL30HCwkGMKaOhJ 3LjZpbjsgbWFy L9fnXjDutRPjFal+PHRhY mxlIHdpZHRoPScxMDAlJy LuuBkjQI3eUp3wFDXzGUU vbGxhcHNlOiBj h7maVUIkABrbVZ5qhQmfD 2TrsHK0TXWge2f4Bj42eU I+NNEtZBP3jZutXEtyp65 6FrVlc8aaLEY6 nQKfZOxsNPT8W64qp6X6A EDvQCIoNFV6mKO8jY6iuX ysxhwtK6BnbNEdYfO2UEM 5qGEmuH6rwOtq euezbS5jNdm+J13HGW4ZN MEEWU0NGfg4I5ZsGsjziM I+RD63HAKvMM15aFTfzIL dy4orxMy9CwEe EFKxSCN5oPfnEIwqz3PcG YGnO46oyCLja8A9UBUrcV inzGEhTbQyiQV6wL7dUTr kcmhtp3rwztki Eunbe2irrl91hA19O49jI ZpvCPLtVCU1TGJjVRUbhX nerp2gvJ7cPo1+MEedb9a as1ozqZz5DrFi JINzndSkiGqhTHZ6p8VsC e46N8WysSzta7XbHtb7or 30uLXyd9S7xOR8WKviIQT xmZ8eNVdnGyT7 MPZaUcPyaJ60eNMxSAfrE f4tqMohcKzgEQ5gBAYrvp nqFLPplA0cSFHutGLaeHs oBN8tUUAsdwkp h877KtOyNZV9GLXfiHMlS 4HkmT9wUzIsPURyCITxR3 BfiBEbQFuiZ109XTyhKsF 3AKSgchQvE5Hc AJRpcLblTpB9d6F7Ww9Ls 9DhjgolBCB4LNlhCBMgRs F6JmJwFhJ4U4DdMmf2OGS fwYhdLJ6cF9Ib JAHdkftzgebvvNN9NIWfB LAjnJ99pMXrCDojUj8rq3 K4y836RPVvPPOxwV83Hu8 udDogMTBwdCBU aS5oruoxr2qmnpimFtUlN XGiDIp4QGz3RMIbmEtbDo BhRHJ2MmS3GHB8wFDtdA2 pgFredntyzG1a Oyc+E45xgJ0iFEZ8QUE5f muqWIQowwEvXP84CQ10O9 RyPjwvdGFibGU+PGRpdiB wpBcyTB2iEzMx m6tpm1IqTNvcA8IbIJTuM WnqUgr3TXUrNEV7uFA3iS 0eEESdPWcoe8B2iOE6D3G tbiKukn2qk6mj XMWiSZibR81waPAhc9B7R JNkxTV1XKBiaPkxBpKroC 93Oyc+CKWdhQxzz8ZyZfb jw7man4ymqWl5 LjFyTIBcthItaNvwIYY0o 8WlWj03G88jBZwjASWqLF YuGBInPPCpnSwxqa6qzE5 wIi8+PGNvbCB3 oEA3yF5sVTIjOkI4RVecV 771ChYurXQhFnzgv8zho3 azkBv7JbWqCBKzzySsiXr uAXR3x0DuYa67 P97yBVktGFXyROIjIHXkD VIycLaqbv1snO3dGm7+PC 0kk2qomz39bM82cHW+PHR aVGT5jIqhZBvg UXAkfW6oLLjeCyW8HZGlU kMldF40uWRyEHnjOw7zzE cvfKycMZ6vJJJnyapel16 2JsYet0efZBZz eRRsVHdcPHW7L30fx3M8F RFdJQWoYSU8xMK2lI0ybA lnbjogbGVmdDsgdmVydGl lVUuzINmbW958 IHRvcDsnPlBhdGllbnQgT qUdIWw0I6ZnCei8MJJltD goQU3cnYPiWGavOt6qqSu keAygQO5pCHQi stgdl220JjOhc3dfUSRpv KRqNXgnCFQ8T82kg8K4US SdLIFdBGM3sEV5pK7msAb nbjogbGVmdDsg ozNbpHebHRuuECycJ801E HRvcDsnPkJpcnRoIERhdG O9HI14WJ05kGJoh3H0eJV 0G2KeLJFcxhfh lzrouGM1YVMhLEFmpE85K y6dmXeaYf6xPTLlTVQ1QE RolGKwA0EvsL6qFdRiROM aQWCsW3VvnWMg ASobV539DQyyRtJ5GHEzz gHtW4XgBCZazQprDmD8r7 T6Py5KT8Q9MH90TJ08yUV xu5X3gPZ5E7Gl AEDuiqlkjdfwrAG5SLXgP AKdxJ83Wr2beDyjYr4hIK XuZIG7BOAyrBCwF9TqgI4 yOiAjMDAwMDAw L4PtaPAwTNemD675BUkkF xU1MYUssoGgK8SbNVHfbP ngFoC2y1J4Oh9RJKq5FQ0 5QC02yZYcm1O8 tPK5J3AzVQVigmxraalpj IY2QZOqOPKkiI05Vj1efC jhHm6cSFOcZLZ4ZJJpgTC yK5DfvH0wJeNj WGOyGZPzO5YnvXMaTTyoR 070MTsiOoR9DUXutqMmL1 MpKFAbtAqcAaC2r7B8Lt1 VVSNdCA50VUP4 kPX7OA52OF94J7ByXgzjn GFibGU+PHRhYmxlIHdpZH RoPScxMDAlJyBzdHlsZT0 lAw6pMYJsPPPn lTotuOLuQqLzn1dyCSCyL ZutKM1pjPplM3RdcHV0PK Vcu1d2Mf71K43gJ4QkoHG +NSMwvCA8bRF9 kP6dLuWhJcH2RTkhA019X uHkjUIxIztte6snt5calX i2CoZ9SCIdzfNaqWygJGZ 0c0DoNv14V33q IHdpZHRoPSIxNSUiIHZhb Egakt7nsN8nEo6+PGNvbC B7iUG3wY7cAiGuIhQ0LQp aX813QoIuhLTc Qchwq2jsf3jpjKm3KtPkS NHnicHgeNqkYXX1e3VqMx 62D1ZfmBdyt7UzJan1ge6 4aMHxt4Q3yPV3 L2PvINNteewtmYFpvByvI K5mOZDyuoxsOZQepW1pSU UpQ8v8CoNcMsD8ISntM3Y hfzH5REEpdNMq UHgnFXW7U14mg2D7XSVaW BHwWSN6gDG0iL2obQdnoq ogbGVmdDsgdmVydGljYWw vBAfkA417LDEg lDbcPXIzsV3gODIieOIew UmcUJ5uDWAjuobrBvALP4 aCMhqeMO9NKeVSEDn6A7M lCex3PYOuuShp FV1djAPgTJmmNl0vjFdmy ExzYD9gLVIyismvJMWbcA 2cPQLdnTMucPduTT5fNKN azfkkt769YvPt ILE8YPHpuTLkF5CvpV7yB oCmPJIpCWBgX5XcdNBfFO hgD119HZqpGaR1DNJrgbP hY8UxOTPyzDay LcZ1f3A5Fi2oCU6iSV0rV ColQX96GW69yWYpa7D8nZ G8K4NtFBMozyccptchpJD 8UTOfRRJzwG99 aLEbNKlkPh7ng2V0j115B AQoUDGjyO23Vl3vuLgmOL QjmSKPsJ2frlysf8iivgb gIzAwMDAwMDt0 QBw2FGFnaAksOwKuMQH7Z pM9CMG2yUDlaV3uwTvulx lzvR7sYcu+NDEgWWVhcnM 6B6TpYyx8ZCQq oNciRS3lsXRaODgkVx5bv IleqIpnEC0pPIOaembzWK OtxH2wEYIrfAZieYfeKE2 hQSAbinbzz807 KtFhMOD0CQFshUQnM6Rdo H3hIuHyMGZjBXOtV9YflW UzQXdiD015MUvmZcN3YIO eerJsV3SaOHRw sMqzMkT6t6T8Fn4RMN6tz MF1V1OcIrn3YPHgvKixHH 1nwMVfZRimBh0emQyxzEb xGR7yTBLevxgl DSEzbL0zBEEwpFAekHrvJ H0qAVMxedteo642OjRhXG P5YVMznKKtA8MjfV7vEdA vAWUaIVImE7Fk uWTuRHulZ294QSjiOyP4F NXfzaHzI5NgOTKqiXjpEl K4c0O0Ad6DeCHbMYQvFP7 2PJ59KQ08I0Rj PjwvdGFibGU+PHRhYmxlI HdpZHRoPScxMDAlJyBzdH bpXQ8bNw2rENBqQSDbqSh thCBcBbMrp6vx SPBbCEirOF1xgVitH9Bmw XG3TCKrq2w7Er68F55qU7 JvdXA+JJUtbZR1cSV1lJ1 fVqCvPoL6NQxc J335IxUowBEqLunxa5kuh 4nklQw1XfYdJUOedeVtgG hrYIQ0c3IvZg78R87uRXe pZHRoPSIyMCUi OQCkzJkwgh1tuM6mTp6+P MVlyTD7yNL0tH1tUyFzLv Y9OGarB611ZvUvuVCyQvj zF19yC2EuyVL+ KDZgXfb8ETHhgXpfGO6ks FEtUAshLa4sXAX6JgHtBs GjTEvnV3JtAVGxowvovqq siFT3WLEpNHJk hN35Rh4blYknYb0tANOqJ JP3NUNlfBJzO5VilF4jSh AnOSYnWMOrA6JynHVxTOf oZ931ALovCpR7 HTEajbBrA3OiVWZetJqyG nT8a5L1Ah4BsPwusNKvIC 9cZgKoWCn1W6FoXhp0SAA bzMxsHF3tgZWn KBykDo2hsWkijJpdXY1hW LDnzchxh616LjIyl3xtUL KdwHEkTBuvXPZ4Q70rd8Z 1PVHgRKPwJTX7 zBC0nP5dkXjcbiurkEZvv DsgdmVydGljYWwtYWxpZ2 46VCLmaKliKpNEVxa5W0U rOic0MHGtfOuu ZZ4ylCQyFFboWz4xeLtce WcpZI0vDOMvixkfq579Bv Evp1qlQINmuENsDEzuTWX 5W58le6L4TCMn KINxFAB6kWY2uC1jbIimf jogbGVmdDsgdmVydGljYW erVCorD273FUFhnXwoYo0 QUtn8R1LgDvc6 ZPKuvMxvAT4dfAZfEBerE i4dfJeziCjmCY0rQZAcyz xor441UkLuk7pbGOIfjSR yVYzuQZO0Q87j o5T8OJWdPVGrAOJ3pOF1e H1ucOxdrqtlmCQqfXsjxd LbzQjhHMupVKfhI742NDD vcDsnPlBheWVy OjwvdGQ+NY49vi50I3ZqL fbdJof2CYLzOQU1tLG3jT 9rYCOzCMbzz6N7qYB6M6U vutEpfh2ic6bb YXBz (more content not included)... Normal [facility] MRI Ankle w/o Contrast Right on 04-14-2021 [...] EDWIN Technologist: KARLY Technical Comments None Normal [facility] Consent for Treatmenton Consent for Treatment [id number] .00CD:127 Normal [facility] RAD - MRI Screening Formon 0 04-13-2021 RAD - MRI Screening Form [id number]# 1.00CD:127 Normal [facility] Physician Orderon 04-06-2021 Physician Order [id number]#1 .00CD:127 Normal [facility] Comprehensive Metabolic Pane ana 12-24-2020 Albumin [Mass/Vol] 4.3 g/dL Normal 3.5-4.6 [facility] Comment on above: Performed By: #### C MP #### [facility] [address] [place] [address] ALP [Catalytic activity/Vol] 61 U/L Normal 40-130 [facility] Comment on above: Performed By: #### C MP #### [facility] [address] [place] [address] ALT [Catalytic activity/Vol] 21 U/L Normal 0-33 [facility] Comment on above: Performed By: #### C MP #### [facility] [address] [place] [address] Anion gap [Moles/Vol] 14 mmol/L Normal 9-15 [facility] Comment on above: Performed By: #### C MP #### [facility] [address] [place] [address] AST [Catalytic activity/Vol] 20 U/L Normal 0-35 [facility] Comment on above: Performed By: #### C MP #### [facility] [address] [place] [address] Bilirubin [Mass/Vol] 0.3 mg/dL Normal 0.2-0.7 [facility] Comment on above: Performed By: #### C MP #### [facility] [address] [place] [address] Calcium [Mass/Vol] 9.3 mg/dL Normal 8.5-9.9 [facility] Comment on above: Performed By: #### C MP #### [facility] [address] [place] [address] Chloride [Moles/Vol] 102 mmol/L Normal 95-107 [facility] Comment on above: Performed By: #### C MP #### [facility] [address] [place] [address] CO2 [Moles/Vol] 23 mmol/L Normal 20-31 [facility] Comment on above: Performed By: #### C MP #### [facility] [address] [place] [address] Creatinine [Mass/Vol] 0.82 mg/dL Normal 0.50-0.90 [facility] Comment on above: Performed By: #### C MP #### [facility] [address] [place] [address] GFR >60.0 Normal >60 [facility] Comment on above: Result Comment: >60 mL/min/1.73m2 EGFR, calc. for ages 18 and older using the MDRD formula (not corrected for weight), is valid for stable renal function. Performed By: #### C MP #### [facility] [address] [place] [address] GFR/1.73 sq M.predicted among blacks MDRD (S/P/Bld) [Vol rate/Area] mL/min/{1.73_m2} Normal >60 [facility] Comment on above: Result Comment: >60 mL/min/1.73m2 EGFR, calc. for ages 18 and older using the MDRD formula (not corrected for weight), is valid for stable renal function. Performed By: #### C MP #### [facility] [address] [place] [address] Globulin (S) [Mass/Vol] 2.4 g/dL Normal 2.3-3.5 [facility] Comment on above: Performed By: #### C MP #### [facility] [address] [place] [address] Glucose [Mass/Vol] 102 mg/dL Critically high 70-99 [facility] Comment on above: Performed By: #### C MP #### [facility] [address] [place] [address] Potassium [Moles/Vol] 5.0 mmol/L Critically high 3.4-4.9 [facility] Comment on above: Performed By: #### C MP #### [facility] [address] [place] [address] Protein [Mass/Vol] 6.7 g/dL Normal 6.3-8.0 [facility] Comment on above: Performed By: #### C MP #### [facility] [address] [place] [address] Sodium [Moles/Vol] 139 mmol/L Normal 135-144 [facility] Comment on above: Performed By: #### C MP #### [facility] [address] [place] [address] Urea nitrogen [Mass/Vol] 15 mg/dL Normal 6-20 [facility] Comment on above: Performed By: #### C MP #### [facility] [address] [place] [address] Lipid Panelon 12-24-2020 Cholesterol [Mass/Vol] 173 mg/dL Normal 0-199 [facility] Comment on above: Result Comment: ATP III Cholesterol classification is Desirable. Performed By: #### L IPID #### [facility] [address] [place] [address] Cholesterol in HDL [Mass/Vol] 52 mg/dL Normal 40-59 [facility] Comment on above: Result Comment: ATP [...] CHD Performed By: #### L IPID #### [facility] [address] [place] [address] Cholesterol in LDL [Mass/Vol] 101 mg/dL Normal 0-129 [facility] Comment on above: Result Comment: ATP III LDL Classification is Near Optimal. Performed By: #### L IPID #### [facility] [address] [place] [address] Triglyceride [Mass/Vol] 102 mg/dL Normal 0-150 [facility] Comment on above: Result Comment: ATP III Triglycerides Classification is Normal. Performed By: #### L IPID #### [facility] [address] [place] [address] Vital Signs Date Time Vital Sign Value Performing Clinician Abbi lang 02-13-2024 08:52-0500 Body height 175.3 cm Billie Hemmer PA Work Phone: [facility] 02-13-2024 08:52-0500 Body mass index (BMI) [Ratio] 32.93 kg/m2 Billie Hemmer PA Work Phone: [facility] 02-13-2024 08:52-0500 Body weight 101.15 kg Billie Hemmer PA Work Phone: [facility] 02-13-2024 08:52-0500 Diastolic blood pressure 68 mm[Hg] Billie Hemmer PA Work Phone: [facility] 02-13-2024 08:52-0500 Heart rate 75 /min Billie Hemmer PA Work Phone: [facility] 02-13-2024 08:52-0500 Respiratory rate 16 /min Billie Hemmer PA Work Phone: [facility] 02-13-2024 08:52-0500 SaO2% (BldA) [Mass fraction] 99 % Billie Hemmer PA Work Phone: [facility] 02-13-2024 08:52-0500 Systolic blood pressure 112 mm[Hg] Billie Hemmer PA Work Phone: [facility] 02-06-2024 15:28-0500 Body height 175.3 cm Billie Hemmer PA Work Phone: [facility] 02-06-2024 15:28-0500 Body mass index (BMI) [Ratio] 33.52 kg/m2 Billie Hemmer PA Work Phone: [facility] 02-06-2024 15:28-0500 Body weight 102.97 kg Billie Hemmer PA Work Phone: [facility] 02-06-2024 15:28-0500 Diastolic blood pressure 76 mm[Hg] Billie Hemmer PA Work Phone: [facility] 02-06-2024 15:28-0500 Heart rate 61 /min Billie Hemmer PA Work Phone: [facility] 02-06-2024 15:28-0500 Respiratory rate 16 /min Billie Hemmer PA Work Phone: [facility] 02-06-2024 15:28-0500 SaO2% (BldA) [Mass fraction] 98 % Billie Hemmer PA Work Phone: [facility] 02-06-2024 15:28-0500 Systolic blood pressure 118 mm[Hg] Billie Hemmer PA Work Phone: [facility] Healthcare Encounters Encounter Date Encounter Type Care Provider Facility Start: 03-19-2024 End: 03-19-2024 Bamboo flowsheet Josseline Hall MD Work Phone: [facility] Start: 03-19-2024 End: 03-19-2024 Bamboo flowsheet Josseline Hall MD Work Phone: [facility] Start: 03-19-2024 End: 03-19-2024 Office outpatient visit 15 minutes Josseline Hall MD Work Phone: [facility] Comment on above: Melanocytic nevus of trunk (Primary Dx); Lentigines; Angioma of skin; Seborrheic keratosis Start: 03-19-2024 End: 03-19-2024 ambulatory JOSSELINE HALL Not Available Start: 02-20-2024 End: 02-20-2024 ambulatory BILLIE DONOVAN Not Available Start: 02-13-2024 End: 02-13-2024 Bamboo flowsheet Billie Donovan PA Work Phone: [facility] Start: 02-13-2024 End: 02-13-2024 Bamboo flowsheet Billie Donovan PA Work Phone: [facility] Start: 02-13-2024 End: 02-13-2024 Patient encounter status Billie Donovan PA Work Phone: [facility] Work Phone: Start: 02-13-2024 End: 02-13-2024 Periodic preventive med est patient 40-64yrs Billie Donovan PA Work Phone: [facility] Comment on above: Wellness examination (Primary Dx); Class 1 obesity due to excess calories without serious comorbidity with body mass index (BMI) of 32.0 to 32.9 in adult; Lumbar radiculopathy; Left sided sciatica; Iliotibial band syndrome of left side; Trochanteric bursitis of left hip; Lichen simplex chronicus; Impaired fasting glucose Start: 02-13-2024 End: 02-13-2024 ambulatory BILLIE DONOVAN Not Available Start: 02-06-2024 End: 02-06-2024 Office outpatient visit 15 minutes Billie Donovan PA Work Phone: [facility] Comment on above: Lumbar radiculopathy (Primary Dx); Left sided sciatica; Need for vaccination; Left leg weakness Start: 02-06-2024 End: 02-06-2024 ambulatory BILLIE DONOVAN Not Available Start: 02-06-2024 End: 02-06-2024 Bamboo flowsheet Billie Donovan PA Work Phone: [facility] Start: 02-06-2024 End: 02-06-2024 Bamboo flowsheet Billie THRASHER Work Phone: [facility] Start: 10-10-2023 End: 10-10-2023 ambulatory MILY SANTANA Not Available Start: 05-04-2023 End: 05-04-2023 ambulatory BILLIE DONOVAN Not Available Start: 04-06-2023 End: 04-06-2023 ambulatory NIKOLAY LATHAM Not Available Start: 04-01-2022 End: 04-02-[address] BILLIE DONOVAN Facility:[facility] Start: 03-25-2022 End: 03-26-[address] ARUN RUBIO Facility:[facility] Start: 09-21-2021 End: 09-21-[address] ARUN RUBIO Facility:[facility] Procedures Date Procedure Procedure Detail Performing Clinician Start: 10-10-2023 Microscopic observat ion [Identifier] in Cervix by Cyto stain Billie THRASHER Work Phone: Start: 03-30-2023 Mammography Billie Dove er PA Work Phone: Plan of Treatment Date Care Activity Detail Author Start: 10-15-2027 Screening for malign ant neoplasm of cervix [facility] Start: 10-09-2026 Screening for malign ant neoplasm of cervix Pap Smear [facility] Start: 03-19-2025 End: 03-19-2025 Patient encounter procedure 03/19/2025 1:45 PM EST Office Visit [facility] [address] [facility] [address] [place] [address] Josseline Hall MD [address] [place] [address] [place] [address] [facility] Start: 10-15-2024 End: 10-15-2024 Patient encounter procedure 10/15/2024 9:00 AM EDT Office Visit [facility] [address] [place] [id number] Mily Santana PA [address] [place] [address] [facility] Start: 03-30-2024 Screening for malign ant neoplasm of breast Mammogram [facility] Start: 03-19-2024 End: 03-19-2024 Patient encounter procedure [facility] Comment on above: Arrived Start: 02-20-2024 End: 02-20-2024 Professional / ancillary services management 02/20/2024 8:30 AM EST Ancillary Procedure [facility] [address] [facility] [address] [place] [address] [facility] Start: 02-13-2024 End: 02-12-2025 CBC W Auto Differential panel - Blood CBC and differential Lab Routine Wellness examination Impaired fasting glucose Expected: 02/13/2024 (Approximate), Expires: 02/12/2025 [facility] Work Phone: Comment on above: Expected: 02/13/2024 (Approximate), Expires: 02/12/2025 Start: 02-13-2024 End: 02-12-2025 Comprehensive metabolic 2000 panel - Serum or Plasma Comprehensive metabolic panel Lab Routine Wellness examination Impaired fasting glucose Expected: 02/13/2024 (Approximate), Expires: 02/12/2025 [facility] Comment on above: Expected: 02/13/2024 (Approximate), Expires: 02/12/2025 Start: 02-13-2024 End: 02-12-2025 Lipid 1996 panel - Serum or Plasma Lipid panel Lab Routine Wellness examination Impaired fasting glucose Expected: 02/13/2024 (Approximate), Expires: 02/12/2025 [facility] Comment on above: Expected: 02/13/2024 (Approximate), Expires: 02/12/2025 Start: 02-13-2024 End: 02-13-2024 Patient encounter procedure [facility] Comment on above: Arrived Start: 02-06-2024 End: 02-06-2024 Patient encounter procedure 02/06/2024 3:30 PM EST Office Visit [facility] [address] [facility] [address] [place] [address] Billie Donovan PA [address] [facility] [address] [place], [place] [id number] Arrived [facility] Comment on above: Arrived Start: 02-06-2024 End: 02-05-2025 MR Lumbar spine WO contrast MR lumbar spine wo contrast Imaging Routine Lumbar radiculopathy Left sided sciatica Left leg weakness Expected: 02/06/2024, Expires: 02/05/2025 [facility] Work Phone: Comment on above: Expected: 02/06/2024 , Expires: 02/05/2025 Start: 11-06-2023 Influenza vaccination Influenza Vacc ine (#1) [facility] Immunizations Immunization Date Immunization Notes Care Provider Fa cility 02-06-2024 influenza, seasonal, injectable, preservative free Billie Hemmer PA Work Phone: [facility] 01-12-2022 influenza, injectabl e, quadrivalent, preservative free Billie Hemmer PA Work Phone: [facility] 01-12-2022 influenza virus vacc ine, unspecified formulation Billie Hemmer PA Work Phone: [facility] 12-01-2016 seasonal influenza, intradermal, preservative free Billie Hemmer PA Work Phone: [facility] 12-25-2015 influenza, injectabl e, quadrivalent, preservative free Billie Hemmer PA Work Phone: [facility] 01-09-2015 influenza, seasonal, injectable, preservative free Billie Hemmer PA Work Phone: [facility] 01-02-2014 influenza, injectabl e, quadrivalent, preservative free Billie Hemmer PA Work Phone: [facility] Healthcare Payers Date Payer Category Payer Private Health Insurance [employer] Member Subscriber Plan / Payer (Effective 2018-Present) Name: Larry Gurrola Relation to Subscriber: Self Name: Larry Gurrola Payer ID: Not on file Type: Not on file Address: [place] [id number] 1979 Unknown [id number]. 593 1979 Unknown [id number] [id number]. 593 1979 Unknown [id number] [id number]. 593 1979 Unknown [id number] [id number]. 1259 1979 Unknown [id number] [id number]. 9 1979 Unknown [id number] [id number]. 9 1979 Unknown [id number] [id number]. 9 1979 Unknown [id number] [id number]. 9 1979 Unknown [id number] [id number]. 9 1979 Unknown [id number] [id number]. 1259 1959 Unknown [id number] Social History Date Type Detail Facility Start: 10-10-2023 Tobacco smoking status DEIS Ex-smoke r [facility] Start: 08-04-2000 End: 09-20-2015 History of tobacco use Current smoker [facility] Start: 08-04-2000 End: 09-20-2015 History of tobacco use Cigarette Smoker [facility] Start: 03-30-2023 End: 10-10-2023 Cigarettes smoked current (pack per day) - Reported 0.3 [facility] Start: 10-10-2023 Tobacco use and exposure Smoke less tobacco non-user [facility] Start: 10-10-2023 End: 03-19-2024 Alcoholic beverage intake Current drinker of alcohol (finding) [facility] Start: 03-30-2023 End: 03-19-2024 Humiliation, Afraid, Rape, and Kick questionnaire [HARK] [facility] Within the last year , have you been afraid of your partner or ex-partner? No [facility] How often do you att end tenriism or jain services? Patient declined [facility] Are you now , , , , never or living with a partner? [facility] How often to you hav e a drink containing alcohol? 2-4 times a month [facility] How many standard dr inks containing alcohol do you have on a typical day? 1 or 2 [facility] How often do you hav e 6 or more drinks on 1 occasion? Never [facility] Do you feel stress - tense, restless, nervous, or anxious, or unable to sleep at night because your mind is troubled all the time - these days [OSQ] Only a little [facility] (I/We) worried wheth er (my/our) food would run out before (I/we) got money to buy more. Never true [facility] Start: 04-06-2023 Alcohol Comment Social occasio ns only,,,,2-4 times a month [facility] Start: 1980 Sex assigned at Female [facility] Start: 08-19-2022 Gender identity Identifies as female gender (finding) [facility] History of Present illness Narrative 03-19-2024 Josseline Hall MD - 03/19/2024 1:50 PM EST Note Date & Type Note Facility 03-19-2024 History of Presen t illness Narrative Skin Check Location: Patient requests a full body skin examination Dermatologic history: no history of skin cancer, no family history of melanoma Last visit: 1 year ago Established patient All pertinent medical history, medications, and allergies were reviewed. General Exam: alert, oriented to person, place, and time, normal affect, well appearing Unaccompanied Areas not examined despite medical recommendation: Scalp, Examined Right leg Examined Head, Face Examined Left leg Examined Neck Examined Right foot Examined Chest Examined Left foot Examined Back Examined Buttocks Examined Abdomen Examined Digits,nails: Examined Right arm Examined Patient wearing nail lao, Denies dark streaks on toenails Left arm Examined Lymphatics: Not examined Hands Examined 1. Melanocytic nevus of trunk Scattered benign appearing, regular brown to light brown melanocytic papules and macules with similar morphology Counseled regarding these benign growths. Rarely, a nevus can develop into malignant melanoma, so any changing nevi should be promptly re-evaluated. 2. Lent[address]ines [address]attered way macules in sun-exposed areas. The patient was informed that lentigines are benign pigmented lesions that occur on sun-exposed and sun-damaged skin. No treatment is necessary. Recommended regular use of broad spectrum sunscreen SPF 30 or higher 3. Angioma of skin Scattered avalos-red papule(s). The patient was informed that angiomas are benign growths on the the skin. No treatment is necessary. 4. Seborrheic keratosis Stuck on verrucous, way-brown papules and plaques. Patient was counseled regarding these benign growths. Removal is normally not necessary, but they may be removed if they are symptomatic or for cosmetic reasons. Next Visit: 1 year skin exam documented in this encounter [facility] History of Present illness Narrative 02-13-2024 PRICE Camp - 02/13/2024 9:00 AM EST Note Date & Type Note Facility 02-13-2024 History of Presen t illness Narrative Images from the original note were not included. Subjective Patient ID: Carmelo Gurrola is a 43 y.o. female who presents for wellness. Subjective Carmelo Gurrola is a 43 y.o. female and is here for a comprehensive physical exam. The patient reports no problems. Current Outpatient Medications on File Prior to Visit Medication Sig Dispense Refill norethindrone-ethinyl estradiol (Balziva) 0.4-35 MG-MCG tablet One tab daily 28 tablet 11 triamcinolone (Kenalog) 0.1 % cream Apply to affected areas, up to twice a day when flared, do not use one the face, groin, or underarms, 30 day supply 30 g 11 No current facility-administered medications on file prior to visit. I have reviewed and reconciled the history and medication list with the patient today. No Known Allergies Social History Tobacco Use Smoking status: Former Current packs/day: 0.00 Average packs/day: 0.3 packs/day for 15.1 years (3.8 ttl pk-yrs) Types: Cigarettes Start date: 08/04/2000 Quit date: 09/20/2015 Years since quittin.4 Smokeless tobacco: Never Vaping Use Vaping status: Never Used Substance Use Topics Alcohol use: Yes Comment: Social occasions only,,,,2-4 times a month Drug use: Never Family History Problem Relation Name Age of Onset Prostate cancer Father Melanoma Neg Hx Past Medical History: Diagnosis Date History of medical problems left sciatic Ligament tear 04/13/2021 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 Tiny fcal split tear of peroneus Brevis Tendon along the inferior margin of the lateral Malleolus Past Surgical History: Procedure Laterality Date TONSILLECTOMY 1989 Visit Vitals BP 112/68 Pulse 75 Resp 16 Ht 5' 9 Wt 223 lb SpO2 99% BMI 32.93 kg/m OB Status Having periods Smoking Status Former BSA 2.22 m Review of Systems Constitutional: Negative for chills, fatigue and fever. HENT: Negative for congestion, ear pain, rhinorrhea and sore throat. Eyes: Negative for pain, discharge and visual disturbance. Respiratory: Negative for cough, shortness of breath and wheezing. Cardiovascular: Negative for chest pain, palpitations and leg swelling. Gastrointestinal: Negative for abdominal pain, constipation, diarrhea, nausea and vomiting. Genitourinary: Negative for difficulty urinating, dysuria and frequency. Musculoskeletal: Positive for arthralgias, back pain and gait problem. Skin: Negative for rash. Neurological: Positive for weakness. Negative for dizziness and numbness. Psychiatric/Behavioral: Negative for sleep disturbance. The patient is not nervous/anxious. Objective Physical Exam Constitutional: General: She is not in acute distress. Appearance: Normal appearance. She is well-developed. She is obese. Comments: Very pleasant HENT: Head: Normocephalic and atraumatic. Right Ear: Tympanic membrane and ear canal normal. Left Ear: Tympanic membrane and ear canal normal. Nose: Nose normal. Mouth/Throat: Mouth: Mucous membranes are moist. Pharynx: No posterior oropharyngeal erythema. Eyes: General: No scleral icterus. Extraocular Movements: Extraocular movements intact. Conjunctiva/sclera: Conjunctivae normal. Pupils: Pupils are equal, round, and reactive to light. Cardiovascular: Rate and Rhythm: Normal rate and regular rhythm. Heart sounds: Normal heart sounds. No murmur heard. Pulmonary: Effort: Pulmonary effort is normal. No respiratory distress. Breath sounds: Normal breath sounds. No wheezing, rhonchi or rales. Abdominal: General: Bowel sounds are normal. There is no distension. Palpations: Abdomen is soft. Tenderness: There is no abdominal tenderness. There is no guarding. Musculoskeletal: General: No swelling or deformity. Cervical back: Normal range of motion and neck supple. No tenderness. Lumbar back: Spasms and tenderness present. No bony tenderness. Decreased range of motion. Positive left straight leg raise test. Negative right straight leg raise test. Back: Comments: Strength LLE 4+/5, except for hip abduction and adduction 5/5. RLE strength 5/5. Skin: General: Skin is warm and dry. Capillary Refill: Capillary refill takes less than 2 seconds. Findings: No rash. Neurological: General: No focal deficit present. Mental Status: She is alert and oriented to person, place, and time. Cranial Nerves: No cranial nerve deficit. Sensory: No sensory deficit. Motor: Weakness present. Gait: Gait abnormal. Deep Tendon Reflexes: Reflexes normal. Psychiatric: Mood and Affect: Mood normal. Behavior: Behavior normal. Thought Content: Thought content normal. Judgment: Judgment normal. Assessment/Plan Diagnoses and all orders for this visit: Wellness examination - CBC and differential; Future - Comprehensive metabolic panel; Future - Lipid panel; Future Wellness form reviewed in detail with the patient. Encouraged patient to stay up to date on immunizations and preventative testing. Encouraged healthy diet, stay active. Will continue with yearly wellness exams. Class 1 obesity due to excess calories without serious comorbidity with body mass index (BMI) of 32.0 to 32.9 in adult Has lost 4 pounds since her last appointment. Encouraged continue with portion control, decreasing simple sugars and carbohydrates, gradually increasing activity level. Aim for continued gradual steady weight loss. Lumbar radiculopathy MRI is scheduled for Tuesday. Left sided sciatica MRI is scheduled for Tuesday. Iliotibial band syndrome of left side Stable at this time. Trochanteric bursitis of left hip Stable at this time. Lichen simplex chronicus The patient is seeing a medical stenographer for this condition, treatment is deferred to that specialist. Correspondence from that specialist and any available testing were reviewed during today's visit. Impaired fasting glucose - CBC and differential; Future - Comprehensive metabolic panel; Future - Lipid panel; Future Mild in the past, will recheck with today's labs. Follow up in about 1 year (around 02/12/2025) for Wellness. documented in this encounter [facility] History of Present illness Narrative 02-06-2024 PRICE Camp - 02/06/2024 3:30 PM EST Note Date & Type Note Facility 02-06-2024 History of Presen t illness Narrative Images from the original note were not included. Subjective Patient ID: Cramelo Gurrola is a 43 y.o. female who presents for back pain. Carmelo is present today for evaluation of back pain. He was seen for this on 05/04/23 Dx. Lumbar Radiculopathy, Rx'd Meloxicam. Also had a lumbar xray 04/01/22 and was normal. The pain started in May 2017, she sat in the floor to pain for 8 hours and ever since then the pain has not went away. The pain is constant, worse when she runs on her treadmill, sitting for long periods of time, laying down. She has tried, chiropractor, PT, massages, shot for her hip when she had bursitis, Meloxicam (did not help), ice, massage gun. Prednisone provided temporary relief in the past. Has done exercises at home including Pilates. Current Outpatient Medications on File Prior to Visit Medication Sig Dispense Refill norethindrone-ethinyl estradiol (Balziva) 0.4-35 MG-MCG tablet One tab daily 28 tablet 11 triamcinolone (Kenalog) 0.1 % cream Apply to affected areas, up to twice a day when flared, do not use one the face, groin, or underarms, 30 day supply 30 g 11 [DISCONTINUED] meloxicam (Mobic) 15 MG tablet TAKE 1 TABLET BY MOUTH EVERY DAY TAKE WITH FOOD 30 tablet 2 No current facility-administered medications on file prior to visit. I have reviewed and reconciled the history and medication list with the patient today. No Known Allergies Social History Tobacco Use Smoking status: Former Current packs/day: 0.00 Average packs/day: 0.3 packs/day for 15.1 years (3.8 ttl pk-yrs) Types: Cigarettes Start date: 08/04/2000 Quit date: 09/20/2015 Years since quittin.3 Smokeless tobacco: Never Vaping Use Vaping status: Never Used Substance Use Topics Alcohol use: Yes Comment: Social occasions only,,,,2-4 times a month Drug use: Never Family History Problem Relation Name Age of Onset Prostate cancer Father Melanoma Neg Hx Past Medical History: Diagnosis Date History of medical problems left sciatic Ligament tear 04/13/2021 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 Tiny fcal split tear of peroneus Brevis Tendon along the inferior margin of the lateral Malleolus Past Surgical History: Procedure Laterality Date TONSILLECTOMY 1989 Visit Vitals BP 118/76 Pulse 61 Resp 16 Ht 5' 9 Wt 227 lb SpO2 98% BMI 33.52 kg/m OB Status Having periods Smoking Status Former BSA 2.24 m Review of Systems Constitutional: Negative for chills, fatigue and fever. Respiratory: Negative for cough, shortness of breath and wheezing. Cardiovascular: Negative for chest pain, palpitations and leg swelling. Gastrointestinal: Negative for abdominal pain, constipation, diarrhea, nausea and vomiting. Musculoskeletal: Positive for arthralgias, back pain and gait problem. Skin: Negative for rash. Neurological: Positive for weakness. Negative for numbness. Objective Physical Exam Constitutional: General: She is not in acute distress. Appearance: Normal appearance. She is well-developed. Comments: Very pleasant HENT: Head: Normocephalic and atraumatic. Eyes: General: No scleral icterus. Conjunctiva/sclera: Conjunctivae normal. Cardiovascular: Rate and Rhythm: Normal rate and regular rhythm. Heart sounds: Normal heart sounds. No murmur heard. Pulmonary: Effort: Pulmonary effort is normal. No respiratory distress. Breath sounds: Normal breath sounds. No wheezing, rhonchi or rales. Musculoskeletal: Lumbar back: Spasms (Left) and tenderness present. No bony tenderness. Decreased range of motion. Negative right straight leg raise test and negative left straight leg raise test. Back: Comments: Strength LLE 4+/5, except for hip abduction and adduction 5/5. RLE strength 5/5. Skin: General: Skin is warm and dry. Neurological: General: No focal deficit present. Mental Status: She is alert and oriented to person, place, and time. Sensory: No sensory deficit. Motor: Weakness present. Gait: Gait abnormal (Antalgic). Deep Tendon Reflexes: Reflexes normal. Psychiatric: Mood and Affect: Mood normal. Behavior: Behavior normal. Assessment/Plan Diagnoses and all orders for this visit: Lumbar radiculopathy - MR lumbar spine wo contrast; Future Patient has failed conservative treatment including OTC medication, prescription medication - including Prednisone and Meloxicam, PT, HEP, career technical education instructor, Massage. X-rays completed on 04/01/2022 of Lumbar Spine showed, No appreciable acute abnormality or significant degenerative changes. Consider MRI of lumbar spine if symptoms persist. Patient has weakness and decreased ROM. MRI ordered for further evaluation at this time. Left sided sciatica - MR lumbar spine wo contrast; Future MRI of lumbar spine ordered for further evaluation. She would like to have this done at [facility]. Will notify pt of the results once received. Need for vaccination - Flu vaccine greater than or equal to 3 years old, PF IM ([id number]) Provided pt with Flu shot today, she tolerated this well. Left leg weakness - MR lumbar spine wo contrast; Future See above. Follow up for Appointment As Scheduled. documented in this encounter [facility] Evaluation note Note Date & Type Note Facility Evaluation note Diagnosis Lumbar radiculopathy- Primary Thoracic or lumbosacral neuritis or radiculitis, unspecified Left sided sciatica Sciatica Need for vaccination Need for prophylactic vaccination and inoculation against unspecified single disease Left leg weakness Muscle weakness (generalized) documented in this encounter [facility] Evaluation note Note Date & Type Note Facility Evaluation note Diagnosis Wellness examination- Primary Class 1 obesity due to excess calories without serious comorbidity with body mass index (BMI) of 32.0 to 32.9 in adult Lumbar radiculopathy Thoracic or lumbosacral neuritis or radiculitis, unspecified Left sided sciatica Sciatica Iliotibial band syndrome of left side Trochanteric bursitis of left hip Lichen simplex chronicus Lichenification and lichen simplex chronicus Impaired fasting glucose documented in this encounter [facility] Evaluation note Note Date & Type Note Facility Evaluation note Diagnosis Melanocytic nevus of trunk- Primary Benign neoplasm of skin of trunk, except scrotum Lentigines Angioma of skin Seborrheic keratosis documented in this encounter [facility] Summary Purpose Family History No Family History Records FoundNo Family History Records FoundNo Family History Records FoundNo Family History Records FoundNo Family History Records Found Advance Directives No Advanced Directives Records FoundNo Advanced Directives Records FoundNo Advanced Directives Records FoundNo Advanced Directives Records FoundNo Advanced Directives Records Found Additional Source Comments INFORMATION SOURCE (unrecogn ized section and content) DATE CREATED AUTHOR 12/25/2020 [facility] Center DATE CREATED AUTHOR AUTHOR'S ORGANIZ ATION 04/15/2021 Jarvis Coosa [facility] DATE CREATED AUTHOR AUTHOR'S ORGANIZ ATION 04/05/2022 [facility] DATE CREATED AUTHOR AUTHOR'S ORGANIZ ATION 02/17/2024 [facility] DATE CREATED AUTHOR AUTHOR'S ORGANIZ ATION 03/22/2024 [facility] dical Specialists EPIC Care Teams (unrecognized sec tion and content) Customer Sales Representative Relationship Specialty Start Date End Date Antwon Sheffield MD [address] [place] [address] PCP - General Family Medicine 10/05/22 Mily Santana PA [address] [place] [address] [place] [address] PCP - Medical [employer] 03/07/16 03/06/99 Customer Sales Representative Relationship Specialty Start Date End Date Antwon Sheffield MD [address] [place] [address] PCP - General Family Medicine 10/05/22 Mily Santana PA [address] [place], [place] [address] [address] PCP - Medical [employer] 03/07/16 03/06/99 Customer Sales Representative Relationship Specialty Start Date End Date Antwon Sheffield MD [address] [facility] [address] [place] [address] PCP - General Family Medicine 10/05/22 Mily Santana PA [address] [place], [place] [address] [address] PCP - Medical [email or web address] 03/07/16 03/06/99 Customer Sales Representative Relationship Specialty Start Date End Date Antwon Sheffield MD [address] [facility] [address] [place] [address] PCP - General Family [facility] 10/05/22 Mily Santana PA [address] [place] [address] [place] [address] PCP - [facility] 03/07/16 03/06/99 Customer Sales Representative Relationship Specialty Start Date End Date Antwon Sheffield MD [address] [facility] [address] [place] [address] PCP - General Family Medicine 10/05/22 Mily Santana PA [address] [place] [address] [place] [address] PCP - [facility] [email or web address] 03/07/16 03/06/99 Reason for Visit (unrecogniz ed section and content) Reason Comments Skin Check FOR RECORDS PERTAINING TO PATIENTS WHO ARE [...] BE BASED ON THE PRIMARY CLINICAL RECORDS. [facility]. provides no warranty or guarantee of the accuracy or completeness of information in this document.
== END 2024-04-05 15:28 | disposition home or self-care (01) ==
LOC: MAMMO 15:27
PROVIDERS: PCP Family Medicine; Visit Provider Obstetrics & Gynecology
DX: Z12.31 Encounter for screening mammogram for malignant neoplasm of breast (principal); Z80.0 Family history of malignant neoplasm of digestive organs
CPT/HCPCS: 77063; 77067

== ENCOUNTER 2024-10-15 12:25 | Outpatient (REF) | payer OTHER, SELFPAY ==
--- OUTSIDE RECORDS SUMMARY | 2024-10-15 09:00 | XMS_ITS | Encounter Summary ---
Author Organization [facility] Address [address] [facility] [place] [address] Care Team Providers Care Finish Molder Name Role Phone Antwon Sheffield MD Primary Care Provider [phone] Billie Alcantar Unavailable [phone] Reason for Visit * Reason Comments Well Women Visit Encounter Details Date Type Department Care Team (Late st Contact Info) Description 10/15/2024 9:00 AM EDT Office Visit [facility] [address] [place] [id number] Mily Epstein PA [address] [facility] [address] [facility] [address] [place], [facility] Well woman exam with routine gynecological exam; Breast cancer screening by mammogram; Uses control Social History Tobacco Use Types Packs/Day Years Used Date Smoking Tobacco: Former Cigarettes 0.3 15.1 0 08/04/2000 - 09/20/2015 Smokeless Tobacco: Never Alcohol Use Standard Drinks/Week Comments Yes 0 (1 standard drink = 0.6 oz pure alcohol) Social occasions only,,,,2-4 times a month Humiliation, Afraid, Rape, and Kick questionnair e Answer Date Recorded Within the last year, have y ou been afraid of your partner or ex-partner? No 03/30/2023 Within the last year, have y ou been humiliated or emotionally abused in other ways by your partner or ex-partner? No Within the last year, have y ou been kicked, hit, slapped, or otherwise physically hurt by your partner or ex-partner? No 03/30/2023 Within the last year, have y ou been raped or forced to have any kind of sexual activity by your partner or ex-partner? No 03/30/2023 Social Connection and Isolation Panel [NHANES] A nswer Date Recorded In a typical week, how many times do you talk on the phone with family, friends, or neighbors? Never 03/30/2023 How often do you get togethe r with friends or relatives? Once a week 03/30/2023 How often do you attend hinduism or christian serv ices? Patient declined 03/30/2023 Do you belong to any clubs o r organizations such as hinduism groups, unions, fraternal or athletic groups, or school groups? Patient declined 03/30/2023 How often do you attend meet ings of the clubs or organizations you belong to? Patient declined 03/30/2023 Are you , , di vorced, , never , or living with a partner? 03/30/2023 AUDIT-C Answer Date Recorded Q1: How often do you have a drink containing alc ohol? 2-4 times a month 03/30/2023 Q2: How many drinks containi ng alcohol do you have on a typical day when you are drinking? 1 or 2 03/30/2023 Q3: How often do you have si x or more drinks on one occasion? Never 03/30/2023 Overall Financial Resource Strain (CARDIA) Answe r Date Recorded How hard is it for you to pa y for the very basics like food, housing, medical care, and heating? Not hard at all 03/30/2023 [facility] Occup[facility] ional Health - Occupational Stress Questionnaire Answer Date Recorded Do you feel stress - tense, restless, nervous, or anxious, or unable to sleep at night because your mind is troubled all the time - these days? Only a little 03/30/2023 Exercise Vital Sign Answer Date Recorde d On average, how many days pe r week do you engage in moderate to strenuous exercise (like a brisk walk)? 5 days 03/30/2023 On average, how many minutes do you engage in exercise at this level? 30 min 03/30/2023 Hunger Vital Sign Answer Date Recorded Within the past 12 months, y ou worried that your food would run out before you got the money to buy more. Never true 03/30/19 24 Within the past 12 months, t he food you bought just didn't last and you didn't have money to get more. Never true 03/30/2023 PRAPARE - Transportation Answer Date Re corded In the past 12 months, has l ack of transportation kept you from medical appointments or from getting medications? No 03/08 In the past 12 months, has l ack of transportation kept you from meetings, work, or from getting things needed for daily living? No 03/30/2023 Housing Stability Vital Sign Answer Natanael e Recorded In the last 12 months, was t here a time when you were not able to pay the mortgage or rent on time? No 03/30/2023 In the last 12 months, how many places have you lived? 1 03/30/2023 In the last 12 months, was t here a time when you did not have a steady place to sleep or slept in a [place] facility (including now)? No 03/30/2023 Comments No Sex and Gender Information Value Date Recorded Sex Assigned at Female 08/19/2022 12:51 PM EDT Legal Sex Female 6:50 PM EDT Gender Identity Female 08/19/2022 12:51 PM EDT Sexual Orientation Not on file documented as of this encounter Last Filed Vital Signs Vital Sign Reading Time Taken Comments Blood Pressure 110/72 10/15/2024 9:03 AM EDT Pulse - - Temperature - - Respiratory Rate - - Oxygen Saturation - - Inhaled Oxygen Concentration - - Weight 101 kg (223 lb 6.4 oz) 10/15/2024 9:03 AM EDT Height - - Body Mass Index 32.99 02/13/2024 8:52 AM EST documented in this encounter Progress Notes * PRICE Baeza - 10/15/2024 9:00 AM EDT Reason for Appointment: Patient ID: Carmelo Cardoza is a 44 y.o. female who presents for Well Women Visit Patient presents today for Annual Exam. MEDICATIONS Current Outpatient Medications Medication Instructions norethindrone-ethinyl estradiol (Balziva) 0.4-35 MG-MCG tablet 1 tablet, Oral, Daily triamcinolone (Kenalog) 0.1 % cream Apply to affected areas, up to twice a day when flared, do not use one the face, groin, or underarms, 30 day supply ALLERGIES No Known Allergies PROBLEMS Active Ambulatory Problems Diagnosis Date Noted Iliotibial band syndrome of left side 03/31/2023 Left sided sciatica 03/31/2023 Lumbar radiculopathy 03/31/2023 Trochanteric bursitis of left hip 03/31/2023 Class 1 obesity due to excess calories without serious comorbidity with body mass index (BMI) of 32.0 to 32.9 in adult 02/13/2024 Lichen simplex chronicus 02/13/2024 Resolved Ambulatory Problems Diagnosis Date Noted Hypoglycemia 03/31/2023 Past Medical History: Diagnosis Date History of medical problems Ligament tear 04/13/2021 HISTORY PAST MEDICAL HISTORY SOCIAL HISTORY Past Medical History: Diagnosis Date History of medical problems left sciatic Ligament tear 04/13/2021 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 Tiny fcal split tear of peroneus Brevis Tendon along the inferior margin of the lateral Malleolus Social History Tobacco Use Smoking status: Former Current packs/day: 0.00 Average packs/day: 0.3 packs/day for 15.1 years (3.8 ttl pk-yrs) Types: Cigarettes Start date: 08/04/2000 Quit date: 09/20/2015 Years since quittin.0 Smokeless tobacco: Never Vaping Use Vaping status: Never Used Substance Use Topics Alcohol use: Yes Comment: Social occasions only,,,,2-4 times a month Drug use: Never FAMILY HISTORY Family History Problem Relation Name Age of Onset Prostate cancer Father Melanoma Neg Hx SURGICAL HISTORY Past Surgical History: Procedure Laterality Date TONSILLECTOMY 1988 REVIEW OF SYSTEMS Review of Systems: Review of Systems Constitutional: Negative. HENT: Negative. Eyes: Negative. Respiratory: Negative. Cardiovascular: Negative. Gastrointestinal: Negative. Genitourinary: Negative. Musculoskeletal: Negative. Skin: Negative. Neurological: Negative. All other systems reviewed and are negative. Hematological: Negative. Endocrine: Negative. Allergic/Immunologic: Negative. OBJECTIVE Objective: Physical Exam Constitutional: Appearance: Normal appearance. Genitourinary: Right Adnexa: not tender and no mass present. Left Adnexa: not tender and no mass present. No cervical discharge. Breasts: Breasts are soft. Right: Normal. Left: Normal. HENT: Head: Normocephalic. Nose: Nose normal. Mouth/Throat: Mouth: Mucous membranes are moist. Cardiovascular: Rate and Rhythm: Normal rate. Pulmonary: Effort: Pulmonary effort is normal. Abdominal: General: Bowel sounds are normal. Palpations: Abdomen is soft. Musculoskeletal: General: Normal range of motion. Cervical back: Normal range of motion. Neurological: General: No focal deficit present. Mental Status: She is alert. Skin: General: Skin is warm and dry. Psychiatric: Mood and Affect: Mood normal. Vitals and nursing note reviewed. Exam conducted with a metal base blocker present. Vitals: Estimated body mass index is 32.99 kg/m?? as calculated from the following: Height as of 02/12/24: 5' 9 . Weight as of this encounter: 223 lb 6.4 oz. BP: 110/72 Patient's last menstrual period was 09/24/2024. ASSESSMENT & PLAN ICD-10-CM 1. Well woman exam with routine gynecological exam Z01.419 THIN PREP TIS PAP AND HR HPV DNA norethindrone-ethinyl estradiol (Balziva) 0.4-35 MG-MCG tablet 2. Breast cancer screening by mammogram Z12.31 Bilateral screening mammogram Bilateral screening mammogram 3. Uses control Z78.9 norethindrone-ethinyl estradiol (Balziva) 0.4-35 MG- MCG tablet Annual Exam: Annual: Patient presents today for an annual exam. Patient states she is doing well and has no complaints. Pap was obtained without difficulty and patient given mammogram order to have scheduled/obtained. Patient control refill at this time. Orders Placed This Encounter Procedures Bilateral screening mammogram Follow Up: Patient is to return in one year for annual unless needed otherwise. Orders Placed This Encounter Procedures Bilateral screening mammogram Follow Up: Patient is to return in one year for annual unless needed otherwise. Documented by Nica Levy LPN on behalf of: PRICE Baeza documented in this encounter Plan of Treatment Upcoming Encounters Date Type Department Care Team (Late st Contact Info) Description 03/19/2025 1:45 PM EST Office Visit [facility] [address] [place] [phone] Josseline Ahuja MD [address] [place] [address] 10/21/2025 9:00 AM EDT Procedure Visit [facility] [address] [place] [address] Mily Epstein PA [address] [facility] [address] [place], [place] [id number] Scheduled Orders Name Type Priority Associated Diagnoses Orde r Schedule Bilateral screening mammogram Imaging Routine Breast cancer screening by mammogram Expected: 10/15/2024 (Approximate), Expires: 12/15/2025 THIN PREP TIS PAP AND HR HPV DNA Pathology and Cytology Routine Well woman exam with routine gynecological exam Ordered: 10/15/2024 documented as of this encounter Visit Diagnoses Diagnosis Well woman exam with routine gynecological exam Routine gynecological examination Breast cancer screening by mammogram Uses control documented in this encounter Care Teams Finish Molder Relationship Specialty Start Date End Date Antwon Sheffield MD [address] [facility] [address] [place] [address] PCP - General Family Medicine 10/05/22 Billie Alcantar PA [address] [facility] [address] [place] [address] PCP - Medical [employer] 03/07/16 03/06/99 documented as of this encounter
--- OUTSIDE RECORDS SUMMARY | 2024-10-15 12:30 | XMS_ITS | Encounter Summary ---
Author Organization [facility] Address [address] [facility] [place] [address] Care Team Providers Care Brewing Director Name Role Phone Antwon Sheffield MD Primary Care Provider [phone] Billie Alcantar PA Unavailable [phone] Encounter Details Date Type Department Care Team (Late st Contact Info) Description 02/13/2024 [facility] [address] [facility] [address] [place] [address] Antwon Sheffield MD [address] [facility] 110 [place] [address] Social History Tobacco Use Types Packs/Day Years [...] week 03/30/2023 How often do you attend hoahaoism or adventism serv ices? Patient declined 03/30/2023 Do you belong to any clubs o r organizations such as hoahaoism groups, unions, fraternal or athletic groups, or [...] and heating? Not hard at all 03/30/2023 [facility] - Occupational Stress Questionnaire Answer Date Recorded [...] place to sleep or slept in a snf (including now)? No 03/30/2023 Comments No Sex and Gender Information Value Date Recorded Sex Assigned at Female 08/19/2022 12:51 PM EDT Legal Sex Female 6:50 PM EDT Gender Identity Female 08/19/2022 12:51 PM EDT Sexual Orientation Not on file documented as of this encounter Plan of Treatment Upcoming Encounters Date Type Department Care Team (Late st Contact Info) Description 03/19/2025 1:45 PM EST Office Visit [facility] [address] [place] [phone] Josseline Ahuja MD [address] [place] [address] 10/21/2025 9:00 AM EDT Procedure Visit [facility] [address] [facility] [place] [address] Mily Epstein PA [address] [facility] [address] [place], [place] [phone] documented as of this encounter Visit Diagnoses Not on filedocumented in this encounter Care Teams Brewing Director Relationship Specialty Start Date End Date Antwon Sheffield MD 112 [facility] 110 [place] [address] PCP - General Family Medicine 10/05/22 Billie Alcantar PA [address] [facility] 110 [place] [address] PCP - Medical [facility] [employer] 03/07/16 03/06/99 documented as of this encounter
--- OUTSIDE RECORDS SUMMARY | 2024-10-15 12:30 | XMS_ITS | Encounter Summary ---
Author Organization [facility] Address [address] [facility] [place] [address] Care Team Providers Care Steward/Stewardess Night Name Role Phone Antwon Sheffield MD Primary Care Provider [phone] Billie Alcantar Unavailable [phone] Encounter Details Date Type Department Care Team (Late st Contact Info) Description 03/31/2023 Orders Only [facility] [address] [place] [address] A, Unknown Practice [address] [place] [phone] Social History Tobacco Use Types Packs/Day Years Used Date Smoking Tobacco: Former Cigarettes 0.3 15.1 0 08/04/2000 - 09/20/2015 Smokeless Tobacco: Never Alcohol Use Standard Drinks/Week Comments Yes 0 (1 standard drink = 0.6 oz pur e alcohol) Social occasions only Humiliation, Afraid, Rape, and Kick questionnair e [...] week 03/30/2023 How often do you attend sikhism or muslim serv ices? Patient declined 03/30/2023 Do you belong to any clubs o r organizations such as sikhism groups, unions, fraternal or athletic groups, or [...] and heating? Not hard at all 03/30/2023 [facility] Occupat ional Health - Occupational Stress [...] money to buy more. Never true 03/30/19 Within the past 12 months, t he [...] place to sleep or slept in a prison (including now)? No 03/30/2023 Comments Unknown Sex and Gender Information Value Date Recorded [...] Dermatology [address] [place] [address] Josseline Ahuja MD [address] [place] [address] 10/21/2025 9:00 AM EDT Procedure Visit [facility]NA Gan [facility] [address] [place] [phone] Mily Epstein PA [address] [facility] [address] [place], [place] [address] documented as of this encounter Procedures Procedure Name Priority Date/Time Associated Diagnosis Comments MAMMOGRAM* Routine 03/30/2023 9:12 AM EST documented in this encounter Results * MAMMOGRAM* (03/30/2023 9:12 AM EST) Anatomical Region Laterality Modality Radiographic Noris ging us Unknown Practice A IMG XR PROCEDURES Final Resul t documented in this encounter Visit Diagnoses Not on filedocumented in this encounter Care Teams Steward/Stewardess Night Relationship Specialty Start Date End Date Antwon Sheffield MD [address] [address] PCP - General Family Medicine 10/05/22 Billie Alcantar PA [address] [address] PCP - Medical [place] Commercial 03/07/16 03/06/99 documented as of this encounter
--- OUTSIDE RECORDS SUMMARY | 2024-10-15 12:30 | XMS_ITS | Clinical Summary ---
Author Organization [facility] Address [address] [place] [address], [address] [place] [address] Care Team Providers Care Escalator Service Mechanic Name Role Phone Unavailable Primary Care Provider Unavailabl e Social History Tobacco Use Types Packs/Day Years Used Date Smoking Tobacco: Never Assessed Comments Unknown Sex and Gender Information Value Date Recorded Sex Assigned at Not on file Legal Sex Female 6:49 AM EST Gender Identity Not on file Sexual Orientation Not on file Plan of Treatment Not on file
--- OUTSIDE RECORDS SUMMARY | 2024-10-15 12:30 | XMS_ITS | Encounter Summary ---
Author Organization [facility] Address [address] [facility] [place] [address] Care Team Providers Care Riverboat Captain Name Role Phone Antwon Sheffield MD Primary Care Provider [phone] Billie Alcantar Unavailable [phone] Encounter Details Date Type Department Care Team (Late st Contact Info) Description 10/19/2023 Orders Only [facility] [address] [facility] [place] [address] Savannah Hernandez LPN Social History Tobacco Use Types Packs/Day Years [...] week 03/30/2023 How often do you attend jew or yarsani serv ices? Patient declined 03/30/2023 Do you belong to any clubs o r organizations such as jew groups, unions, fraternal or athletic groups, or [...] and heating? Not hard at all 03/30/2023 [employer] of Occupat ional Health - Occupational Stress [...] place to sleep or slept in a halfway (including now)? No 03/30/2023 Comments No Sex [...] Dermatology [address] [place] [address] Josseline Ahuja MD [address] [place] [address] 10/21/2025 9:00 AM EDT Procedure Visit [facility]NA [facility] [address] [facility] [place] [phone] Mily Epstein PA [address] [facility] [place] [address] documented as of this encounter Procedures Procedure Name Priority Date/Time Associated Diagnosis Comments PAP SMEAR Routine 10/10/2023 12:00 AM EDT documented in this encounter Results * Pap Smear (10/10/2023 12:00 AM EDT) Swab Cervical swab / Unknown [facility] ORDERABLES Final Re sult EXTERNAL LAB documented in this encounter Visit Diagnoses Not on filedocumented in this encounter Care Teams Riverboat Captain Relationship Specialty Start Date End Date Antwon Sheffield MD 112 [facility] 110 [place], [place] [phone] PCP - General Family Medicine 10/05/22 Billie Alcantar PA 112 [facility] 110 [place], [place] [phone] PCP - Medical [place] [employer] 03/07/16 03/06/99 documented as of this encounter
--- OUTSIDE RECORDS SUMMARY | 2024-10-15 12:31 | XMS_ITS | Encounter Summary ---
Author Organization [facility] Address [address] [facility] [place] [address] Care Team Providers Care Barrel Raiser Name Role Phone Antwon Mace MD Primary Care Provider [phone] Billie Alcantar Unavailable [phone] Encounter Details Date Type Department Care Team (Late st Contact Info) Description 03/30/2023 Clinisync Result Encounter [facility] External Department Unsolicited Arnoldo Bernal, DO [address] [facility] [address] [place] [phone] Social History Tobacco Use Types Packs/Day Years Used Date Smoking Tobacco: Former Cigarettes Alcohol Use Standard Drinks/Week Comments Yes 0 (1 standard drink = 0.6 oz pure alcohol) 1-2 drinks 2-4x a month in the past year Humiliation, Afraid, Rape, and Kick questionnair e [...] How often do you attend hinduism or yarsani serv ices? Patient declined 03/30/2023 [...] and heating? Not hard at all 03/30/2023 [facility] of Occupat ional Health - Occupational Stress [...] a halfway (including now)? No 03/30/2023 Comments Unknown Sex and Gender Information Value Date Recorded Sex Assigned at Female 08/19/2022 12:51 PM EDT Legal Sex Female 6:50 PM EDT Gender Identity Female 08/19/2022 12:51 PM EDT Sexual Orientation Not on file documented as of this encounter Functional Status * Audit-C Score Answer Date of Assessment Author 2 03/30/2023 4:06 PM EST Mychart, Generic * Q1: How often do you have a drink containing alcohol? Answer Date of Assessment Author 2-4 times a month 03/30/2023 4:06 PM EST Mychart , Generic * Q2: How many drinks containing alcohol do you have on a typical day when you are drinking? Answer Date of Assessment Author 1 or 2 03/30/2023 4:06 PM EST Mychart, Generic * Q3: How often do you have six or more drinks on one occasion? Answer Date of Assessment Author Never 03/30/2023 4:06 PM EST Mychart, Generic documented as of this encounter Plan of Treatment Upcoming Encounters Date Type Department Care Team (Late st Contact Info) Description 03/19/2025 1:45 PM EST Office Visit [facility] [address] [place] [address] Josseline Ahuja MD [address] [place] [address] 10/21/2025 9:00 AM EDT Procedure Visit [facility] [address] [facility] [place] [address] Mily Epstein PA [address] [place] [address] documented as of this encounter Procedures Procedure Name Priority Date/Time Associated Diagnosis Comments MM TOMOSYNTHESIS SCREENING BI 03/30/2023 2:56 PM EST documented in this encounter Results * MM TOMOSYNTHESIS SCREENING BI (03/30/2023 2:56 PM EST) Anatomical Region Laterality Modality Other 03/30/2023 2:56 PM EST Narrative 03/30/2023 2:57 PM EST The [address] [address] Mammography Report Signed Patient: LARRY GURROLA MR#: [id number] : 1980 Acct:[id number] Age/Sex: 42 / F ADM Date: 03/30/23 Loc: MAMMO Attending Dr: Arnoldo Bernal D.O. Ordering Physician: Arnoldo Bernal D.O. Results: Date of Service: 03/30/23 Follow Up: Procedure(s): MM tomosynthesis screening BI Accession Number(s): [id number] cc: ANTWON MACE ; Arnoldo Bernal D.O. Patient Name: LARRY GURROLA MR#: [id number] : 1980 Exam Date: 03/30/2023 Ordering Doctor: DR Arnoldo Bernal . RADIOLOGY REPORT PROCEDURE: MM TOMOSYNTHESIS SCREENING BI COMPARISON: MG MAMM SCREEN 3D JAIDEN CAD, 03/11/2021. MG MAMM SCREEN 3D JAIDEN CAD, 03/25/2022. INDICATIONS: screening Calculator Name NCI Breast Cancer Risk Assessment Tool 5 Year Breast Cancer Risk 0.90% Lifetime Breast Cancer Risk 11.80% Personal Breast Cancer No Personal Ovarian Cancer No Treatments None Family Cancers Grandmother-maternal with stomach cancer at age 87. LOCATION: The [facility] BREAST COMPOSITION: Scattered areas fibroglandular density. FINDINGS: DIAGNOSTIC CATEGORY 1--NEGATIVE. NO CHANGE FROM COMPARISON ASSESSMENT. Scattered benign-appearing calcifications are present. Scattered benign-appearing lymph nodes are present. RIGHT BREAST: No significant suspicious finding. LEFT BREAST: No significant suspicious finding. RECOMMENDATIONS: ROUTINE MAMMOGRAM AND CLINICAL EVALUATION IN 12 MONTHS. PLEASE NOTE: A NORMAL MAMMOGRAM DOES NOT EXCLUDE THE POSSIBILITY OF BREAST CANCER. A CLINICALLY SUSPICIOUS PALPABLE LUMP SHOULD BE BIOPSIED. Dictated by: Jf Carroin MD on 03/30/2023 at 14:54 Approved by: Jf Carrion MD on 03/30/2023 at 14:56 Dictated By: Jf Carrion M.D. Signed By: 03/30/23 1457 DD/ 1456 TD/TT: Land Mobile Radio Technician: Procedure Note Radiology, Radiologist, - 05/11/2023 [place] [address] Mammography Report Signed Patient: MARYCRUZ GURROLAR#: [id number] : 1980Acct:[id number] Age/Sex: 42 / FADM Date: 03/30/23 Loc: MAMMO Attending Dr: Arnoldo Bernal D.O. Ordering Physician: Arnoldo Bernal D.O.Results: Date of Service: 03/30/23Follow Up: Procedure(s): MM tomosynthesis screening BI Accession Number(s): [id number] cc: ANTWON MACE ; Arnoldo Bernal D.O. Patient Name: LARRY GURROLA MR#: [id number] : 1980 Exam Date: 03/30/2023 Ordering Doctor: DR Arnoldo Bernal . RADIOLOGY REPORT PROCEDURE: MM TOMOSYNTHESIS SCREENING BI COMPARISON: MG MAMM SCREEN 3D JAIDEN CAD, 03/11/2021. MG MAMM SCREEN 3DBIL CAD, 03/25/2022. INDICATIONS: screening Calculator Name NCI Breast Cancer Risk Assessment Tool 5 Year Breast Cancer Risk 0.90% Lifetime Breast Cancer Risk 11.80% Personal Breast Cancer No Personal Ovarian Cancer No Treatments None Family Cancers Grandmother-maternal with stomach cancer at age 87. LOCATION: The [facility] BREAST COMPOSITION: Scattered areas fibroglandular density. FINDINGS: DIAGNOSTIC CATEGORY 1--NEGATIVE. NO CHANGE FROM COMPARISON ASSESSMENT. Scattered benign-appearing calcifications are present. Scattered benign-appearing lymph nodes are present. RIGHT BREAST: No significant suspicious finding. LEFT BREAST: No significant suspicious finding. RECOMMENDATIONS: ROUTINE MAMMOGRAM AND CLINICAL EVALUATION IN 12 MONTHS. PLEASE NOTE: A NORMAL MAMMOGRAM DOES NOT EXCLUDE THE POSSIBILITY OFBREAST CANCER. A CLINICALLY SUSPICIOUS PALPABLE LUMP SHOULD BE BIOPSIED. Dictated by: Jf Carrion MD on 03/30/2023 at 14:54 Approved by: Jf Carrion MD on 03/30/2023 at 14:56 Dictated By: Jf Carrion M.D. Signed By:03/30/23 1457 DD/ 1456 TD/TT: Land Mobile Radio Technician: us Arnoldo Dolores DO [facility] Final Result documented in this encounter Visit Diagnoses Not on filedocumented in this encounter Care Teams Barrel Raiser Relationship Specialty Start Date End Date Antwon Mace MD [address] [address] PCP - General Family Medicine 10/05/22 Billie Alcantar PA [address] [address] PCP - Medical [place] [employer] 03/07/16 03/06/99 documented as of this encounter
--- OUTSIDE RECORDS SUMMARY | 2024-10-15 12:31 | XMS_ITS | Encounter Summary ---
Author Organization [facility] Address [address] [facility] [place] [address] Care Team Providers Care Knitter Hand Name Role Phone Antwon Mace MD Primary Care Provider [phone] Billie Alcantar Unavailable [phone] Encounter Details Date Type Department Care Team (Late st Contact Info) Description 03/30/2023 Clinisync Result Encounter [facility] External Department Unsolicited Provider, Generic External Data Social History Tobacco Use Types Packs/Day Years [...] How often do you attend hinduism or nondenominational serv ices? Patient declined 03/30/2023 Do you [...] and heating? Not hard at all 03/30/2023 [facility] of Occupat ional Health - Occupational Stress [...] care facility (including now)? No 03/30/2023 Comments Unknown Sex [...] Description 03/19/2025 1:45 PM EST Office Visit [facility] [address] [place] [address] Josseline Ahuja MD [address] [place] [address] 10/21/2025 9:00 AM EDT Procedure Visit [facility] [address] [place] [address] [place] [address] Mily Epstein PA [address] [place] [address] [place] [address] documented as of this encounter Procedures Procedure Name Priority Date/Time Associated Diagnosis Comments MM TOMOSYNTHESIS SCREENING BI 03/30/2023 2:56 PM EST documented in this encounter Results * MM TOMOSYNTHESIS SCREENING BI (03/30/2023 2:56 PM EST) Anatomical Region Laterality Modality Other 03/30/2023 2:56 PM EST Narrative 03/30/2023 2:57 PM EST The [address] [address] Mammography Report Signed Patient: LARRY GURROLA MR#: [id number] : 1980 Acct:[id number] Age/Sex: 42 / F ADM Date: 03/30/23 Loc: MAMMO Attending Dr: Arnoldo Bernal D.O. Ordering Physician: Arnoldo Bernal D.O. Results: Date of Service: 03/30/23 Follow Up: Procedure(s): MM tomosynthesis screening BI Accession Number(s): [id number] cc: ANTWON MACE ; Arnoldo Bernal D.O. Patient Name: LARRY GURROLA MR#: [id number] : 1980 Exam Date: 03/30/2023 Ordering Doctor: [...] stomach cancer at age 86. LOCATION: The [facility] BREAST COMPOSITION: Scattered areas fibroglandular density. FINDINGS: [...] Signed By: 03/30/23 1457 DD/ 1456 TD/TT: Tower Hoist Operator: Procedure Note Radiology, Radiologist, MD - 03/30/2023 [place] [address] Mammography Report Signed Patient: LUCA GURROLA#: [id number] : 1980Acct:[id number] Age/Sex: 42 / FADM Date: 03/30/23 Loc: MAMMO Attending Dr: Arnoldo Bernal D.O. Ordering Physician: Arnoldo Bernal D.O.Results: Date of Service: 03/30/23Follow Up: Procedure(s): MM tomosynthesis screening BI Accession Number(s): [id number] cc: ANTWON MACE ; Arnoldo Bernal D.O. Patient Name: LARRY GURROLA MR#: [id number] : 1980 Exam Date: 03/30/2023 Ordering Doctor: [...] stomach cancer at age 86. LOCATION: The [facility] BREAST COMPOSITION: Scattered areas fibroglandular density. FINDINGS: [...] M.D. Signed By:03/30/23 1457 DD/ 1456 TD/TT: Tower Hoist Operator: us Generic External Data Provider [facility] Final Result documented in this encounter Visit Diagnoses Not on filedocumented in this encounter Care Teams Knitter Hand Relationship Specialty Start Date End Date Antwon Mace MD [address] [address] PCP - General Family Medicine 10/05/22 Billie Alcantar PA [address] [address] PCP - Medical [place] [employer] 03/07/16 03/06/99 documented as of this encounter
--- OUTSIDE RECORDS SUMMARY | 2024-10-15 12:31 | XMS_ITS | Clinical Summary ---
Author Organization [facility] Address [address] [place] [address] Care Team Providers Care Pneumatic System Conveyor Operator Name Role Phone Antwon Mace MD Primary Care Provider [phone] Billie Alcantar Unavailable [phone] Allergies No known active allergies Medications triamcinolone (Kenalog) 0.1 % creamIndications: Lichen simplex chronicus Apply to affected areas, up to twice a day when flared, do not use one the face, groin, or underarms, 30 day supply 30 g 11 4 Active norethindrone-eth inyl estradiol (Balziva) 0.4-35 MG-MCG tabletIndications :Well woman exam with routine gynecological exam,Uses control Take 1 tablet by mouth Daily 84 tablet 3 5 Active Balziva 0.4-35 MG-MCG tabletIndications :Well woman exam with routine gynecological exam,Uses control 1 TABLET DAILY 84 tablet 3 5 10/16/19 25 Discontin ued(Reord er) Active Problems Problem Noted Date Diagnosed Date Class 1 obesity due to exces s calories without serious comorbidity with body mass index (BMI) of 32.0 to 32.9 in adult 02/13/2024 Lichen simplex chronicus 02/13/2024 Iliotibial band syndrome of left side 03/31/2023 Left sided sciatica 03/31/2023 Lumbar radiculopathy 03/31/2023 Trochanteric bursitis of left hip 03/31/2023 Resolved Problems Problem Noted Date Diagnosed Date Resolved Date Hypoglycemia 03/31/2023 02/06/2024 Encounters Date Type Department Care Team Description 10/15/2024 9:00 AM EDT Office Visit [facility] [address] [place] [address] Mily Epstein PA Well woman exam with routine gynecological exam; Breast cancer screening by mammogram; Uses control 10/15/2024 Bamboo flowsheet [facility] [address] [place] [address] Mily Epstein PA 10/10/2024 Travel 09/11/2024 [place]ill [place] [address] Mily Epstein PA Well woman exam with routine gynecological exam; Uses control from Last 3 Months Immunizations Immunization Administration Dates Next Due Influenza, injectable, quadr ivalent, preservative free 01/12/2022,12/25/2015,01/02/2014 Influenza, seasonal, injecta ble, preservative free 02/06/2024,01/09/2015 Influenza, seasonal, intrade rmal, preservative free 12/01/2016 Family History Medical History Relation Name Comments Prostate cancer Father Melanoma Neg Hx Relation Name Status Comments Brother Alive x1 Father Alive Mother Alive Sister Alive x1 Social History Tobacco Use Types Packs/Day Years Used Date Smoking Tobacco: Former Cigarettes 0.3 15.1 0 08/04/2000 - 09/20/2015 Smokeless Tobacco: Never Tobacco Cessation:Counseling Given: Not Answered Alcohol Use Standard Drinks/Week Comments Yes 0 [...] week 03/30/2023 How often do you attend synagogue or yazidi serv ices? Patient declined 03/30/2023 Do you belong to any clubs o r organizations such as synagogue groups, unions, fraternal or athletic groups, or [...] and heating? Not hard at all 03/30/2023 [facility] - Occupational Stress [...] place to sleep or slept in a usp (including now)? No 03/30/2023 Comments No Sex and Gender Information Value Date Recorded Sex Assigned at Female 08/19/2022 12:51 PM EDT Legal Sex Female 6:50 PM EDT Gender Identity Female 08/19/2022 12:51 PM EDT Sexual Orientation Not on file Last Filed Vital Signs Vital Sign Reading Time Taken Comments Blood Pressure 110/72 10/15/2024 9:03 AM EDT Pulse 75 02/13/2024 8:52 AM EST Temperature 37.1 C (98.7 F) 05/04/2023 2:28 PM EST Respiratory Rate 16 02/13/2024 8:52 AM EST Oxygen Saturation 99% 02/13/2024 8:52 AM EST Inhaled Oxygen Concentration - - Weight 101 kg (223 lb 6.4 oz) 10/15/2024 9:03 AM EDT Height 175.3 cm (5' 9 ) 02/13/2024 8:52 AM EST Body Mass Index 32.99 02/13/2024 8:52 AM EST Plan of Treatment Upcoming Encounters Date Type Department Care Team (Late st Contact Info) Description 03/19/2025 1:45 PM EST Office Visit [facility] [address] [place] [address] [place] [address] Josseline Ahuja MD [address] [facility] [address] [place] [address] 10/21/2025 9:00 AM EDT Procedure Visit [facility] [address] [place] [address] Mily Epstein PA [address] [facility] [place] [address] Health Maintenance Due Date Last Done Comments CT Colonography 1979 Colonoscopy 1979 Colorectal Cancer Screening 1979 FIT-DNA 1979 FIT 1979 FOBT 1979 Sigmoidoscopy 1979 Influenza Vaccine (#1) 2024 , 01/12/2022, 12/01/2016, Additional history exists Mammogram 04/05/2025 04/05/2024, 03/08, 03/30/2023, Additional history exists Pap Smear 10/09/2026 10/10/2023 Cervical Cancer Screening 10/15/2027 HPV/Cotest 10/15/2027 10/14/2022 Procedures Procedure Name Priority Date/Time Associated Diagnosis Comments MM TOMOSYNTHESIS SCREENING BI 04/05/2024 4:28 PM EST PAP SMEAR Routine 10/10/2023 12:00 AM EDT THINPREP PAP AND HPV MRNA E6/E7 W/RFL HPV 16,18/45 Routine 10/14/2022 2:33 PM EDT Well woman exam with routine gynecological exam from Last 3 Months or Most Recently Relevant to Health Maintenance Results * MM TOMOSYNTHESIS SCREENING BI (04/05/2024 4:28 PM EST) Anatomical Region Laterality Modality Other 04/05/2024 4:28 PM EST Narrative 04/05/2024 4:29 PM EST The [address] [address] Mammography Report Signed Patient: LARRY GURROLA MR#: [id number] : 1980 Acct:[id number] Age/Sex: 43 / F ADM Date: 04/05/24 Loc: MAMMO Attending Dr: Arnoldo Bernal D.O. Ordering Physician: Arnoldo Bernal D.O. Results: Date of Service: 04/05/24 Follow Up: Procedure(s): MM tomosynthesis screening BI Accession Number(s): [id number] cc: ANTWON MACE ; Arnoldo Bernal D.O. Patient Name: LARRY GURRLOA MR#: [id number] : 1980 Exam Date: 04/05/2024 Ordering Doctor: DR Arnoldo Bernal . RADIOLOGY REPORT PROCEDURE: MM TOMOSYNTHESIS SCREENING BI COMPARISON: MM TOMOSYNTHESIS SCREENING BI, 03/30/2023. MG MAMM SCREEN 3D JAIDEN CAD, 03/25/2022. MG MAMM SCREEN 3D JAIDEN CAD, 03/11/2021. MG MAMM SCREEN JAIDEN W CAD, 01/25/2020. INDICATIONS: Screening Calculator Name NCI Breast Cancer Risk Assessment Tool 5 Year Breast Cancer Risk 0.90% Lifetime Breast Cancer Risk 11.70% Personal Breast Cancer No Personal Ovarian Cancer No Treatments None Family Cancers Grandmother-maternal with stomach cancer at age 87. LOCATION: [facility] BREAST COMPOSITION: There are scattered areas of fibroglandular density. FINDINGS: DIAGNOSTIC CATEGORY 1--NEGATIVE. RIGHT [...] BIOPSIED. Dictated by: Jessee Zayas M.D. on 04/05/2024 at 16:26 Approved by: Jessee Zayas M.D. on 04/05/2024 at 16:28 Dictated By: Jessee Zayas M.D. Signed By: 04/05/24 1629 DD/ 1628 TD/TT: Building Services Supervisor: Procedure Note Radiology, Radiologist, MD - 04/05/2024 [facility] [place] [id number] Mammography Report Signed Patient: MARYCRUZ GURROLAR#: [id number] : 1980Acct:[id number] Age/Sex: 43 / FADM Date: 04/05/24 Loc: MAMMO Attending Dr: Arnoldo Bernal D.O. Ordering Physician: Arnoldo Bernal D.O.Results: Date of Service: 04/05/24Follow Up: Procedure(s): MM tomosynthesis screening BI Accession Number(s): [id number] cc: ANTWON MACE ; Arnoldo Bernal D.O. Patient Name: LARRY GURROLA MR#: [id number] : 1980 Exam Date: 04/05/2024 Ordering Doctor: DR Arnoldo Bernal . RADIOLOGY REPORT PROCEDURE: MM TOMOSYNTHESIS SCREENING BI COMPARISON: MM TOMOSYNTHESIS SCREENING BI, 03/30/2023. MG MAMM [id number] JAIDEN CAD, 03/25/2022. MG MAMM SCREEN 3D JAIDEN CAD, 03/11/2021. MG MAMM SCREENBIL W CAD, 01/25/2020. INDICATIONS: Screening Calculator Name NCI Breast Cancer Risk Assessment Tool 5 Year Breast Cancer Risk 0.90% Lifetime Breast Cancer Risk 11.70% Personal Breast Cancer No Personal Ovarian Cancer No Treatments None Family Cancers Grandmother-maternal with stomach cancer at age 87. LOCATION: [facility] BREAST COMPOSITION: There are scattered areas of fibroglandulardensity. FINDINGS: DIAGNOSTIC CATEGORY 1--NEGATIVE. RIGHT BREAST: No significant suspicious finding. No significant changehas occurred. LEFT BREAST: No significant suspicious finding. No significant changehas occurred. RECOMMENDATIONS: ROUTINE MAMMOGRAM AND CLINICAL EVALUATION IN 12 MONTHS. PLEASE NOTE: A NORMAL MAMMOGRAM DOES NOT EXCLUDE THE POSSIBILITY OFBREAST CANCER. A CLINICALLY SUSPICIOUS PALPABLE LUMP SHOULD BE BIOPSIED. Dictated by: Jessee Zayas M.D. on 04/05/2024 at 16:26 Approved by: Jessee Zayas M.D. on 04/05/2024 at 16:28 Dictated By: Jessee Zayas M.D. Signed By:04/05/241628 DD/ 27 TD/TT: Building Services Supervisor: us Arnoldo Bernal DO [facility] Final Result * Pap Smear (10/10/2023 12:00 AM EDT) Swab Cervical swab / Unknown us Mily [facility] CYTOLOGY ORDERABLES Final Re sult Performing Organization Address City/[facility]/ZIP Co de Phone Number EXTERNAL LAB * THINPREP PAP AND HPV MRNA E6/E7 W/RFL HPV 16,18/45 (10/14/2022 2:33 PM EDT) us Mily [facility] BLOOD ORDERABLES Final Resul t Performing Organization Address [facility] Co de Phone Number EXTERNAL LAB from Last 3 Months or Most Recently Relevant to Health Maintenance Insurance [employer] Care Teams Pneumatic System Conveyor Operator Relationship Specialty Start Date End Date Antwon Mace MD [address] [address] PCP - General Family Medicine 10/05/22 Billie Alcantar PA [address] [facility] [address] [place] [address] PCP - Medical [place] [employer] 03/07/16 03/06/99
--- OUTSIDE RECORDS SUMMARY | 2024-10-15 12:31 | XMS_ITS | Encounter Summary ---
Author Organization [facility] Address [address] [facility] [place] [address] Care Team Providers Care Vice President Business Development Name Role Phone Antwon Sheffield MD Primary Care Provider [phone] Billie Alcantar Unavailable [phone] Encounter Details Date Type Department Care Team (Latest Contact Info) Description 10/10/2024 Travel Social History Tobacco Use Types Packs/Day Years [...] week 03/30/2023 How often do you attend anabaptist or mormon serv ices? Patient declined 03/30/2023 Do you belong to any clubs o r organizations such as anabaptist groups, unions, fraternal or athletic groups, or [...] place to sleep or slept in a long-term (including now)? No 03/30/2023 Comments No Sex [...] Dermatology [address] [place] [address] [place] [phone] Josseline Ahuja MD [address] [address] [place] [address] 10/21/2025 9:00 AM EDT Procedure Visit [facility] [address] [facility] [place] [address] Mily Epstein PA [address] [facility] [address] [place], [place] [id number] documented as of this encounter Visit Diagnoses Not on filedocumented in this encounter Care Teams Vice President Business Development Relationship Specialty Start Date End Date Antwon Sheffield MD [address] [facility] [address] [place] [address] PCP - General Family Medicine 10/05/22 Billie Alcantar PA [address] [facility] [address] [place], [place] [phone] PCP - Medical [place] [employer] 03/07/16 03/06/99 documented as of this encounter
--- OUTSIDE RECORDS SUMMARY | 2024-10-15 12:31 | XMS_ITS | Encounter Summary ---
Author Organization [facility] Address [address] [place] [address] Care Team Providers Care Adult Literacy Instructor Name Role Phone Antwon Sheffield MD Primary Care Provider [phone] Billie Alcantar Unavailable [phone] Encounter Details Date Type Department Care Team (Late st Contact Info) Description 10/15/2024 Bamboo flowsheet [facility] [address] [facility] [place] [address] Mily Epstein PA [address] [facility] [address] [place], [id number] Social History Tobacco Use Types Packs/Day Years [...] week 03/30/2023 How often do you attend mormonism or hindu serv ices? Patient declined 03/30/2023 Do you belong to any clubs o r organizations such as mormonism groups, unions, frawikifolio or athletic groups, or school groups? Patient [...] and heating? Not hard at all 03/30/2023 [facility] - Occupational [...] Dermatology [address] [place] [phone] Josseline Ahuja MD [address] [place] [address] [place] [address] 10/21/2025 9:00 AM EDT Procedure Visit [facility] [address] [facility] [place] [address] Mily Epstein PA [address] [facility] [place] [address] documented as of this encounter Visit Diagnoses Not on filedocumented in this encounter Care Teams Adult Literacy Instructor Relationship Specialty Start Date End Date Antwon Sheffield MD [address] [facility] [address] [place] [address] PCP - General Family Medicine 10/05/22 Billie Alcantar PA [address] [facility] 110 [place] [address] PCP - Medical [place] [employer] 03/07/16 03/06/99 documented as of this encounter
--- OUTSIDE RECORDS SUMMARY | 2024-10-15 12:31 | XMS_ITS | Encounter Summary ---
Author Organization [facility] Address [address] [place] [address] Care Team Providers Care Broadcast Operations Director Name Role Phone Antwon Sheffield MD Primary Care Provider [phone] Billie Alcantar Unavailable [phone] Encounter Details Date Type Department Care Team (Late Contact Info) Description 10/04/2022 Abstract [facility] [address] [facility] [place] [place] [address] Mily Epstein PA [address] [facility] [address] [place], [facility] Social History Tobacco Use Types Packs/Day Years Used Date Smoking Tobacco: Former Cigarettes Alcohol Use Standard Drinks/Week Comments Yes 0 (1 standard drink = 0.6 oz pure alcohol) 1-2 drinks 2-4x a month in the past year Comments Unknown Sex and Gender Information Value Date Recorded Sex Assigned at Female 08/19/2022 12:51 PM EDT Legal Sex Female 6:50 PM EDT Gender Identity Female 08/19/2022 12:51 PM EDT Sexual Orientation Not on file COVID-19 Exposure Response Date Recorded In the last 10 days, have yo u been in contact with someone who was confirmed or suspected to have Coronavirus/COVID-19? No / Unsure 09/28/2022 8:49 AM EDT documented as of this encounter Plan of Treatment Upcoming Encounters Date Type Department Care Team (Late st Contact Info) Description 03/19/2025 1:45 PM EST Office Visit [facility] [address] [place] [phone] Josseline Ahuja MD [address] [place] [address] 10/21/2025 9:00 AM EDT Procedure Visit [facility] [address] [facility] [place] [place] [address] Mily Epstein PA [address] [facility] [place] [address] documented as of this encounter Visit Diagnoses Not on filedocumented in this encounter Care Teams Broadcast Operations Director Relationship Specialty Start Date End Date Antwon Sheffield MD [address] [facility] [address] [place] [address] PCP - General Family Medicine 10/05/22 Billie Alcantar PA [address] [facility] [address] [place] [address] PCP - Medical [place] [employer] 03/07/16 03/06/99 documented as of this encounter
[2024-10-18 11:13] LABS: Age Gdln ACOG Testing Note (.); IGP, Aptima HPV, rfx 16/18,45 Note (.)
== END 2024-10-15 12:26 | disposition home or self-care (01) ==
LOC: LAB 12:25
PROVIDERS: PCP Family Medicine; Visit Provider Physician Assistant
DX: Z01.419 Encounter for gynecological examination (general) (routine) without abnormal findings (principal)
CPT/HCPCS: 87624; 88175

== ENCOUNTER 2025-02-25 08:56 | Outpatient (OUT) | payer OTHER, SELFPAY ==
--- OUTSIDE RECORDS SUMMARY | 2025-02-25 09:02 | XMS_ITS | Clinical Summary ---
Author Organization [facility] Address [address] [place] [address] Care Team Providers Care Ceo Ziff Davis Name Role Phone Antwon Mace MD Primary Care Provider [phone] Billie Alcantar Unavailable [phone] Allergies No known active allergies Medications MedicationSigDispense QuantityRefillsLast FilledStart DateEnd DateStatus triamcinolone (Kenalog) 0.1 % cream Indications:Lichen simplex chronicusApply to affected areas, up to twice a day when flared, do not use one the face, groin, or underarms, 30 day supply 30 g 1104Active norethindrone-ethinyl estradiol (Balziva) 0.4-35 MG-MCG tablet Indications:Well woman exam with routine gynecological exam,Uses control Take 1 tablet by mouth Daily 84 tablet 5Active Active Problems ProblemNoted DateDiagnosed DateClass 1 obesity due to excess calories without serious comorbidity with body mass index (BMI) of 32.0 to 32.9 in adult 02/13/2024Lichen simplex nzwskweah19/09/2024Iliotibial band syndrome of left side03/31/2023Left sided pzykazrn24/25/2024Lumbar nlwawkestkino40/25/2024 Trochanteric bursitis of left hip03/31/2023 Resolved Problems ProblemNoted DateDiagnosed DateResolved InqgEhiqroubxaqr97 Immunizations ImmunizationAdministration DatesNext DueInfluenza, injectable, quadrivalent, preservative free01/12/2022,12/25/2015,01/02/2014Influenza, seasonal, injectable, preservative free02/06/2024,01/09/2015Influenza, seasonal, intradermal, preservative free12/01/2016 Family History Medical HistoryRelationNameCommentsProstate cancerFatherMelanomaNeg HxRelation LzeeFpasfgEzvcowwsKbnewskTldtxm1LhnetsYaxpvRbhxihPkhpkKhtqtePutmwj6 Social History Tobacco UseTypesPacks/DayYears UsedDateSmoking Tobacco: FormerCigarettes0.315.1 08/04/2000 - 09/20/2015Smokeless Tobacco: Never Tobacco Cessation:Counseling Given: Not Answered Alcohol UseStandard Drinks/WeekCommentsYes0 (1 standard drink = 0.6 oz pure alcohol)Social occasions only,,,,2-4 times a monthHumiliation, Afraid, Rape, and Kick questionnaireAnswerDate RecordedWithin the last year, have you been afraid of your partner or ex-partner?No03/30/2023Within the last year, have you been humiliated or emotionally abused in other ways by your partner or ex-partner?No 03/30/2023Within the last year, have you been kicked, hit, slapped, or otherwise physically hurt by your partner or ex-partner?No03/30/2023Within the last year, have you been raped or forced to have any kind of sexual activity by your part ner or ex-partner?No03/30/2023Social Connection and Isolation PanelAnswerDate RecordedIn a typical week, how many times do you talk on the phone with family, friends, or neighbors?Never03/30/2023How often do you get together with friends or relatives?Once a week03/30/2023How often do you attend hinduism or presybeterian services?Patient atxgokwl06/24/2024o you belong to any clubs or organizations such as hinduism groups, unions, fraternal or athletic groups, or school groups? Patient mvajjybd96/24/2024How often do you attend meetings of the clubs or organizations you belong to?Patient ylfswyzy60/24/2024Are you , , , , never , or living with a partner?Kxpdxxt8903/30/2023 AUDIT-CAnswerDate RecordedQ1: How often do you have a drink containing alcohol? 2-4 times a month03/30/2023Q2: How many drinks containing alcohol do you have on a typical day when you are drinking?1 or Q3: How often do you have six or more drinks on one occasion?Never03/30/2023Overall Financial Resource Strain (CARDIA)AnswerDate RecordedHow hard is it for you to pay for the very basics like food, housing, medical care, and heating?Not hard at all03/30/2023 [place] [employer] - Occupational Stress Questionnaire AnswerDate RecordedDo you feel stress - tense, restless, nervous, or anxious, or unable to sleep at night because yourmind is troubled all the time - these days? Only a qkdede9003/30/2023Exercise Vital SignAnswerDate RecordedOn average, how many days per week do you engage in moderate to strenuous exercise (like a brisk walk)?5 days03/30/2023On average, how many minutes do you engage in exercise at this level?30 min03/30/2023Hunger Vital SignAnswerDate RecordedWithin the past 12 months, you worried that your food would run out before you got the money to buymore.Never true03/30/2023Within the past 12 months, the food you bought just didn't last and you didn't have money to get more.Never true03/30/2023RAPARE - TransportationAnswerDate RecordedIn the past 12 months, has lack of transportation kept you from medical appointments or from getting medications?No 03/30/2023In the past 12 months, has lack of transportation kept you from meetings, work, or from getting things needed for daily living?No03/30/2023 Housing Stability Vital SignAnswerDate RecordedIn the last 12 months, was there a time when you were not able to pay the mortgage or rent on time?No03/30/2023In the last 12 months, how many places have you lived?In the last 12 months, was there a time when you did not have a steady place to sleep or slept in ashelter (including now)?No4CommentsNoSex and Gender InformationValueDate RecordedSex Assigned at PzghlBkjdkr20/15/2023 12:51 PM EDT Legal ZmdYaasqs11/15/2023 6:50 PM EDTGender LvzjtukkCahiyz32/15/2023 12:51 PM EDTSexual OrientationNot on file Last Filed Vital Signs Vital SignReadingTime TakenCommentsBlood Byxxziux800/7208 9:03 AM EDT Mgjmj763602/13/2024 8:52 AM EQKEhxgszvzzib38.1 ??C (98.7 ??F)05/04/2023 2:28 PM ESTRespiratory Jjlk313504/15/2023 8:52 AM ESTOxygen Rskxiytttr14%02/13/2024 8:52 AM ESTInhaled Oxygen Concentration--Rpfqvj801 kg (223 lb 6.4 oz)10/15/2024 9:03 AM SHLBjiuac299.3 cm (5' 9 )02/13/2024 8:52 AM ESTBody Mass Index32.9902/13/2024 8:52 AM EST Plan of Treatment DateTypeDepartmentCare Team (Latest Contact Info)Nxzxfgnzyuv74/13/2026 1:45 PM ESTOffice Visit [facility] [address] [place] [phone] Josseline Ahuja MD [address] [place] [address] 10/21/2025 9:00 AM EDTProcedure Visit [facility] [address] [phone] Mily Epstein PA [address] [place] [address] Health MaintenanceDue DateLast DoneCommentsCT Uekfqdcruzsl17/11/1980Colonoscopy 1979Colorectal Cancer Wefsougqu84/11/1980FIT-DNA1979FIT1979 FOBT06/16/19799813Fxzsykjcyhsjk66/11/1980COVID-19 Vaccine ( season) /10/2021, 01/24/2021, 05/24/2020, Additional history existsInfluenza Vaccine (#1)/04/2023, 01/12/2022, 12/01/2016, Additional history zsaoozDnanspsro80, 03/30/2023, 03/30/2023, Additional history existsHPV/Nprjvt19/ervical Cancer Emlunzhwe15/11/2028Pap Smear , 10/10/2023neumococcal Vaccine: Pediatrics (0 to 5 Years) and At-Risk Patients (6 to 64 Years)Aged OutNo longer eligible based on patient's age to complete this topic Procedures Procedure NamePriorityDate/TimeAssociated DiagnosisCommentsPAP SMEARRoutine 10/15/2024 12:00 AM EDTMM TOMOSYNTHESIS SCREENING BI04/05/2024 4:28 PM EST THINPREP PAP AND HPV MRNA E6/E7 W/RFL HPV 16,18/43Aopgxci25/10/2023 2:33 PM EDT Well woman exam with routine gynecological exam from Last 3 Months or Most Recently Relevant to Health Maintenance Results * Pap Smear (10/15/2024 12:00 AM EDT)Specimen (Source)Anatomical Location / LateralityCollection Method / VolumeCollection TimeReceived TimeSwabCervical swab / Unknown Narrative Authorizing ProviderResult TypeResult StatusFazio Nurse [facility] ObLAB CYTOLOGY ORDERABLESFinal ResultPerforming OrganizationAddressCity/State/ZIP CodePhone Number EXTERNAL LAB * MM TOMOSYNTHESIS SCREENING BI (04/05/2024 4:28 PM EST)Anatomical Region LateralityModalityOtherSpecimen (Source)Anatomical Location / Laterality Collection Method / VolumeCollection TimeReceived Time04/05/2024 4:28 PM EST Narrative 04/05/2024 4:29 PM EST [facility] ?[address] ? [place] [address] ? Mammography Report ? Signed ? Patient: IZABELA,LARRY ? MR#: [id number] ?? : 1980 ?Acct:[id number] ?? Age/Sex: 43 / F ?ADM Date: 01/30/25 ?? Loc: MAMMO ? Attending Dr: Arnoldo Bernal D.O. ? Ordering Physician: Arnoldo Bernal D.O. ?Results: ? Date of Service: 04/05/24 ?Follow Up: ? Procedure(s): MM tomosynthesis screening BI ?? Accession Number(s): [id number] ? cc: ANTWON MACE ; Arnoldo Bernal D.O. ? Patient Name: ? LARRY IZABELA ? MR#: [id number] ? : 1980 ? Exam Date: 04/05/2024 ?? Ordering Doctor: DR Arnoldo Beranl . ? RADIOLOGY REPORT ? PROCEDURE: ? MM TOMOSYNTHESIS SCREENING BI ? COMPARISON: ? MM TOMOSYNTHESIS SCREENING BI, 03/30/2023. ??MG MAMM SCREEN 3D ?? JAIDEN CAD, 03/25/2022. ??MG MAMM SCREEN 3D JAIDEN CAD, 03/11/2021. ??MG MAMM SCREEN JAIDEN ?? W CAD, 01/25/2020. ? INDICATIONS: ? Screening ? Calculator Name ? NCI Breast Cancer Risk Assessment Tool ?? 5 Year Breast Cancer Risk ? 0.90% ?? Lifetime Breast Cancer Risk ? 11.70% ?? Personal Breast Cancer ?No ?? Personal Ovarian Cancer ? No ?? Treatments ? None ?? Family Cancers ? Grandmother-maternal with stomach cancer at age 87. ? LOCATION: ? [facility] ? BREAST COMPOSITION: ? There are scattered areas of fibroglandular density. ? FINDINGS: ? DIAGNOSTIC CATEGORY 1--NEGATIVE. ? RIGHT BREAST: ??No significant suspicious finding. ??No significant change has ?? occurred. ? LEFT BREAST: ??No significant suspicious finding. ??No significant change has ?? occurred. ? RECOMMENDATIONS: ? ROUTINE MAMMOGRAM AND CLINICAL EVALUATION IN 12 MONTHS. ? PLEASE NOTE: ??A NORMAL MAMMOGRAM DOES NOT EXCLUDE THE POSSIBILITY OF BREAST ?? CANCER. ??A CLINICALLY SUSPICIOUS PALPABLE LUMP SHOULD BE BIOPSIED. ? Dictated by: Jessee Zayas M.D. on 04/05/2024 at 16:26 ? Approved by: Jessee Zayas M.D. on 04/05/2024 at 16:28 ? Dictated By: ?Jessee Zayas M.D. ? Signed By: ?04/05/24 1629 ? DD/ 1628 ? TD/TT: ? Regional Director Of Finance: Procedure Note Radiology, Radiologist, - 04/05/2024 [place] [address] Mammography Report Signed Patient: MARYCRUZ GURROLAR#: [id number] : 1980Acct:[id number] Age/Sex: 43 / FADM Date: 04/05/24 Loc: MAMMO Attending Dr: Arnoldo Bernal D.O. Ordering Physician: Arnoldo Bernal D.O.Results: Date of Service: 04/05/24Follow Up: Procedure(s): MM tomosynthesis screening BI Accession Number(s): [id number] cc: ANTWON MACE ; Arnoldo Bernal D.O. Patient Name: LARRY GURROLA MR#: [id number] : 1980 Exam Date: 04/05/2024 Ordering Doctor: DR Arnoldo Bernal . RADIOLOGY REPORT PROCEDURE: MM TOMOSYNTHESIS SCREENING BI COMPARISON: MM TOMOSYNTHESIS SCREENING BI, 03/30/2023. MG MAMM VAWYNK7K JAIDEN CAD, 03/25/2022. MG MAMM SCREEN 3D JAIDEN CAD, 03/11/2021. MG MAMM SCREENBIL W CAD, 01/25/2020. INDICATIONS: Screening Calculator Name NCI Breast Cancer Risk Assessment Tool 5 Year Breast Cancer Risk 0.90% Lifetime Breast Cancer Risk 11.70% Personal Breast Cancer No Personal Ovarian Cancer No Treatments None Family Cancers Grandmother-maternal with stomach cancer at age 87. LOCATION: [facility] BREAST COMPOSITION: There are scattered areas of [...] 16:28 Dictated By: Jessee Zayas M.D. Signed By:04/05/24 1629 DD/ 1628 TD/TT: Regional Director Of Finance: Authorizing ProviderResult TypeResult StatusArnoldo Bernal DOCLINISYOH IMAGINGFinal Result * THINPREP PAP AND HPV MRNA E6/E7 W/RFL HPV 16,18/45 (10/14/2022 2:33 PM EDT) Narrative Authorizing ProviderResult TypeResult StatusMily [facility] BLOOD ORDERABLES Final ResultPerforming OrganizationAddressCity/State/ZIP CodePhone Number EXTERNAL LAB from Last 3 Months or Most Recently Relevant to Health Maintenance Insurance Care Teams Team MemberRelationshipSpecialtyStart DateEnd Date Antwon Mace MD [address] [facility] [address] [place] [address] PCP - GeneralFamily Medicine10/05/22 Billie Alcantar PA [address] [facility] [address] [place] [address] PCP - Medical [facility]03/07/1711
--- OUTSIDE RECORDS SUMMARY | 2025-02-25 09:02 | XMS_ITS | Clinical Summary ---
Author Organization [facility] Address [address], [address] [place] [address] Care Team Providers Care Packing And Wrapping Supervisor Name Role Phone Unavailable Primary Care Provider Unavailabl e Social History Tobacco UseTypesPacks/DayYears UsedDateSmoking Tobacco: Never Assessed CommentsUnknownSex and Gender InformationValueDate RecordedSex Assigned at Not on fileLegal OzbJqrejy87/11/2013 6:49 AM ESTGender IdentityNot on fileSexual OrientationNot on file Plan of Treatment Not on file
[2025-02-25 09:36] LABS: Hematocrit 39.9 % (36.0-48.0); Hemoglobin 13.4 g/dL (12.0-16.0); Immature Granulocytes Abs Auto 0.03 10^3/uL (0.00-0.03); Immature Granulocytes Pct Auto 0.3 % (0.0-0.5); Lymphocytes Absolute Auto 3.1 10^3/uL (1.2-3.8); Mean Corpuscular HGB Conc 33.6 g/dL (29.9-35.2); Mean Corpuscular Hemoglobin 31.4 pg (26.7-34.0); Mean Corpuscular Volume 93.4 fL (81.0-99.0); Platelet Count 351 10^3/uL (150-450); Red Blood Count 4.27 10^6/uL (4.20-5.40); White Blood Count 9.1 10^3/uL (4.0-11.0)
[2025-02-25 10:15] LABS: Iron 121.0 ug/dL (50.0-170.0); Percent Iron Saturation 25.6 %; Total Iron Binding Capacity 472.0 ug/dL (250.0-450.0)
[2025-02-25 10:22] LABS: Alanine Aminotransferase 32 U/L (14-59); Albumin Globulin Ratio 1.0; Albumin Level 3.6 g/dL (3.4-5.0); Alkaline Phosphatase 70 U/L (46-116); Anion Gap 11.1; Aspartate Amino Transferase 18 U/L (15-37); Blood Urea Nitrogen 16.0 mg/dL (7.0-18.0); Calcium 9.0 mg/dL (8.5-10.1); Carbon Dioxide 31.8 mmol/L (21.0-32.0); Chloride 102 mmol/L (98-107); Cholesterol 188 mg/dL (<=200); Estimated GFR (African America >60 (>=60 mL/min/1.73m^2); Estimated GFR (Non-African Ame 57 (>=60 mL/min/1.73m^2); Globulin 3.7 g/dL; Glucose 97 mg/dL (74-106); HDL Cholesterol 54 mg/dL (40-60); Potassium 3.9 mmol/L (3.5-5.1); Sodium 141 mmol/L (136-145); TSH W/ REFLEX FT4 0.940 uIU/mL (0.358-3.740); Total Protein 7.3 g/dL (6.4-8.2)
[2025-02-25 10:33] LABS: Triglycerides 130 mg/dL (<=150); VLDL CHOLESTEROL 26.0 mg/dL
[2025-02-25 11:05] LABS: Ferritin 50.0 ng/mL (8.0-252.0)
== END 2025-02-25 08:57 | disposition home or self-care (01) ==
LOC: LAB 08:59
PROVIDERS: PCP Nurse Practitioner Family; Visit Provider Nurse Practitioner Family
DX: Z00.00 Encounter for general adult medical examination without abnormal findings (principal); R42 Dizziness and giddiness
CPT/HCPCS: 36415; 80053; 80061; 82728; 83540; 83550; 84443; 85025